=== PATIENT | female | born 1960 | race Caucasian/White ===

== ENCOUNTER 2019-10-31 01:11 | Day surgery (SDC) | payer OTHER, SELFPAY ==
[2019-10-30 07:32] VITALS: BMI 24.1
[2019-10-31] MEDS: LACTATED RINGERS 1,000 ML 150 ML IV CONT (10:47)
[2019-10-31 10:51] VITALS: BP 118/60; PULSE 66; RESP 20; TEMP 37.1; O2SAT 100
--- NOTE | 2019-10-31 10:53 | WPDANESEPPF ---
Anes - Initial Pre Proc Eval Procedure: Operation Date: 10/31/19 12:00 Proposed Procedures p Screening Colonoscopy - Jorge Luis Nichols MD Date/Time: 10/31/19 10:53 Surgeon: Jorge Luis Nichols MD Pre Op Diagnosis: Neoplasm Screening Patient Data Age: 59 Gender: F Height: 1.55 m Weight: 56.4 kg Last Vital Signs Temp 37.1 C 10/31/19 10:51 Pulse 66 10/31/19 10:51 Resp 20 10/31/19 10:51 BP 118/60 10/31/19 10:51 Pulse Ox 100 10/31/19 10:51 Allergies Allergy/AdvReac Type Severity Reaction Status Date / Time Penicillins Allergy Unknown RASH Verified 10/31/19 10:40 Home Medications Medication Instructions Recorded Confirmed Type cholecalciferol (vitamin D3) 5,000 unit PO QMWF 10/30/19 10/30/19 History [Vitamin D3] conj estrogens-bazedoxifene 1 tablet PO DAILY 10/30/19 10/30/19 History [Duavee] fenofibrate 160 mg PO DAILY 10/30/19 10/30/19 History levothyroxine 112 mcg PO DAILY 10/30/19 10/30/19 History lisinopril-hydrochlorothiazide 1 tablet PO BID 10/30/19 10/30/19 History metoprolol succinate 25 mg PO DAILY 10/30/19 10/30/19 History multivitamin 1 tablet PO DAILY 10/30/19 10/30/19 History omeprazole 20 mg PO DAILY 10/30/19 10/30/19 History Patient hx anesthesia problems: none Family hx anesthesia problems: none [facility] Past Medical History Medical History (Updated 10/31/19 @ 08:56 by Braden Ashton DO) GERD (gastroesophageal reflux disease) Hyperlipidemia Hypertension Hypothyroidism Renal stones Surgical History Surgical History (Updated 10/31/19 @ 08:56 by Braden Ashton DO) History of tonsillectomy History of tubal ligation Family History Family History (System 09/28/19 @ 08:41 by Florence Alejandre) Father Family history of lung cancer Mother Family history of lung cancer Sibling Family history of obesity Depression Family history of migraine headaches Family history of osteoarthritis Patient's sister is in good health Patient's brother is in good health Family history of irritable bowel syndrome Mother Hypertension Family history of osteoarthritis Cerebrovascular accident Family history of lung cancer, Onset Age: 72 Family history of emphysema Family history of irritable bowel syndrome Father Family history of lung cancer, Onset Age: 68 Family history of emphysema Patient's father is Grandparent Family history of coronary artery disease Other Diabetes mellitus Family history of arthritis Family history of cardiovascular disease Family history of malignant neoplasm Social History Social History (System 09/28/19 @ 08:41 by Florence Alejandre) Smoking status: Never smoker Second hand tobacco smoke exposure: No Alcohol intake: current Anes - Eval Final PreProcedure Day of Procedure 10/31/19 10:53 Patient weight: normal Heart: regular rate and rhythm Lungs: clear to auscultation and normal air movement Airway: Mallampati scale Neurological: alert and oriented Last oral intake: >/= 8 hours ASA classification: II Emergent: no Anesthetic plan: proceed Anesthesia type and monitoring: general GIVS and standard monitoring Informed Consent: The patient's anesthetic plan and its attendant risks and benefits were discussed with the patient/family/POA. Questions were solicited and answers provided to the satisfaction of the patient/family/POA.
[2019-10-31 12:50] VITALS: BP 97/48; PULSE 67; RESP 20; O2SAT 100
[2019-10-31 13:00] VITALS: BP 106/57; PULSE 70; RESP 20; O2SAT 99
[2019-10-31 13:10] VITALS: BP 103/59; PULSE 63; RESP 20; O2SAT 99
--- NOTE | 2019-12-22 07:17 | PM.HPGS ---
History of Present Illness History of Present Illness Consent: Risks, benefits, and alternatives have been discussed and questions answered. Patient agrees to proceed with procedure. Chief complaint: Neoplasm Screening Narrative: Asia Velasquez is a 59 year old female for screening colonoscopy. [facility] Past Medical History Medical History GERD (gastroesophageal reflux disease) Hyperlipidemia Hypertension Hypothyroidism Renal stones Surgical History Surgical History History of tonsillectomy History of tubal ligation Family History Family History Father Family history of lung cancer Mother Family history of lung cancer Sibling Family history of obesity Depression Family history of migraine headaches Family history of osteoarthritis Patient's sister is in good health Patient's brother is in good health Family history of irritable bowel syndrome Mother Hypertension Family history of osteoarthritis Cerebrovascular accident Family history of lung cancer, Onset Age: 72 Family history of emphysema Family history of irritable bowel syndrome Father Family history of lung cancer, Onset Age: 68 Family history of emphysema Patient's father is Grandparent Family history of coronary artery disease Other Diabetes mellitus Family history of arthritis Family history of cardiovascular disease Family history of malignant neoplasm Social History Social History (System 09/28/19 @ 08:41 by Florence Alejandre) Smoking status: Never smoker Second hand tobacco smoke exposure: No Alcohol intake: current Meds Home Medications and Allergies Home Medications Medication Instructions Recorded Confirmed Type Duavee 1 tablet PO DAILY 10/30/19 10/30/19 History cholecalciferol (vitamin D3) 5,000 unit PO QMWF 10/30/19 10/30/19 History [Vitamin D3] fenofibrate 160 mg PO DAILY 10/30/19 10/30/19 History levothyroxine 112 mcg PO DAILY 10/30/19 10/30/19 History lisinopril-hydrochlorothiazide 1 tablet PO BID 10/30/19 10/30/19 History metoprolol succinate 25 mg PO DAILY 10/30/19 10/30/19 History multivitamin 1 tablet PO DAILY 10/30/19 10/30/19 History omeprazole 20 mg PO DAILY 10/30/19 10/30/19 History Allergies Allergy/AdvReac Type Severity Reaction Status Date / Time Penicillins Allergy Unknown RASH Verified 10/31/19 10:40 Exam Resp: Auscultation: clear to auscultation bilaterally Cardio: Rate: regular rate Rhythm: regular rhythm GI: GI Palp: Yes Soft to palpation and No Tenderness to palpation present (GI) Assessment and Plan Assessment and plan (1) Colon cancer screening: Code(s): Z12.11 - Encounter for screening for malignant neoplasm of colon Status: Acute Assessment and Plan: Colonoscopy with possible biopsy or polypectomy or cautery or injection of substances.
== END 2019-10-31 13:25 | disposition home or self-care (01) ==
PROVIDERS: PCP Family Medicine; Visit Provider Internal Medicine Gastroenterology
PROC: 0DJD8ZZ Inspection of Lower Intestinal Tract, Via Natural or Artificial Opening Endoscopic (ICD-10-PCS; CPT 45378; principal; 2019-10-31 12:00)
DX: Z12.11 Encounter for screening for malignant neoplasm of colon (principal); K57.30 Diverticulosis of large intestine without perforation or abscess without bleeding; I10 Essential (primary) hypertension; E78.5 Hyperlipidemia, unspecified; E03.9 Hypothyroidism, unspecified; K21.9 Gastro-esophageal reflux disease without esophagitis
CPT/HCPCS: 45378; J2704; J7120

== ENCOUNTER 2020-01-15 10:25 | Outpatient (CLI) | payer OTHER, SELFPAY ==
[2020-01-15 11:29] LABS: Vitamin D 25 Hydroxy 95.7 ng/mL
== END 2020-01-15 10:26 | disposition home or self-care (01) ==
LOC: ANHLAB 10:26
PROVIDERS: PCP Family Medicine; Visit Provider Nurse Practitioner
DX: E55.9 Vitamin D deficiency, unspecified (principal)
CPT/HCPCS: 36415; 82306

== ENCOUNTER 2020-05-09 15:05 | Outpatient (CLI) | payer OTHER, SELFPAY ==
--- NOTE | ~2020-05-09 | XR_ITS ---
EXAMINATION: XR elbow RT min 3V DATE: 05/09/2020 15:35 INDICATION: Right elbow pain TECHNIQUE: Anteroposterior, two oblique and lateral views of the right elbow were obtained. COMPARISON: None. FINDINGS: Alignment is normal. No fracture or joint effusion. Joint spaces are normal. Soft tissues are unremar kable. IMPRESSION: 1. Negative right elbow radiographs. Reviewed, dictated and finalized at location A.
== END 2020-05-09 15:06 | disposition home or self-care (01) ==
PROVIDERS: PCP Family Medicine; Visit Provider Family Medicine
DX: M79.601 Pain in right arm (principal)
CPT/HCPCS: 73080

== ENCOUNTER 2020-05-23 09:04 | Outpatient (CLI) | payer OTHER, SELFPAY ==
--- NOTE | 2020-05-23 11:00 | NEURO_ITS ---
Patient Number: [id number] Impression: # Complains of right elbow discomfort with pain in right forearm. # Right ulnar neuropathy nonlocalizing around the elbow. # No Carpal Tunnel Syndrome. # Normal needle/EMG exam. Nerve Conduction Studies Anti Sensory Summary Table Stim Site NR Peak (ms) P-T Amp (?V) Site1 Site2 Delta-P (ms) Dist (cm) Trey (m/s) Right Median Anti Sensory (2-3nd Digit) Wrist 3.5 73.9 Wrist 2-3nd Digit 3.5 14.0 40 Wrist 3.3 84.4 Wrist 2-3nd Digit 3.5 14.0 40 Right Radial Anti Sensory (Base 1st Digit) Wrist 2.2 38.3 Wrist Base 1st Digit 2.2 0.0 Right Ulnar Anti Sensory (5th Digit) Wrist 2.7 78.2 Wrist 5th Digit 2.7 14.0 52 Motor Summary Table Stim Site NR Onset (ms) O-P Amp (mV) Site1 Site2 Delta-0 (ms) Dist (cm) Trey (m/s) Right Median Motor (Abd Poll Brev) Wrist 3.3 5.3 Elbow Wrist 4.3 26.0 60 Elbow 7.6 4.5 Right Ulnar Motor (Abd Dig Minimi) Wrist 3.3 8.8 A Elbow Wrist 5.1 27.0 53 A Elbow 8.4 8.6 B Elbow Wrist 3.4 17.0 50 B Elbow 6.7 7.5 F Wave Studies NR F-Lat (ms) L-R F-Lat (ms) Right Median (Mrkrs) (Abd Poll Brev) 27.66 Right Ulnar (Mrkrs) (Abd Dig Min) 26.48 EMG Side Muscle Nerve Root Ins Act Fibs Amp Dur Recrt Comment Right 1stDorInt Ulnar C8-T1 Nml Nml Nml Nml Nml Right Ext Indicis Radial (Post Int) C7-8 Nml Nml Nml Nml Nml Right Ext Digitorum Radial (Post Int) C7-8 Nml Nml Nml Nml Nml Right BrachioRad Radial C5-6 Nml Nml Nml Nml Nml Right PronatorTeres Median C6-7 Nml Nml Nml Nml Nml Right Abd Poll Brev Median C8-T1 Nml Nml Nml Nml Nml Right ABD Dig Min Ulnar C8-T1 Nml Nml Nml Nml Nml MTDD
== END 2020-05-23 09:05 | disposition home or self-care (01) ==
PROVIDERS: PCP Family Medicine; Visit Provider Nurse Practitioner Family
DX: G56.21 Lesion of ulnar nerve, right upper limb (principal)
CPT/HCPCS: 95886; 95909

== ENCOUNTER 2020-06-21 15:41 | Outpatient (CLI) | payer OTHER, SELFPAY ==
--- NOTE | ~2020-06-21 | MM_ITS ---
EXAMINATION: MM screening desean BI w praful HISTORY: Screening mammogram TECHNIQUE: Craniocaudal and mediolateral oblique 3-D tomosynthesis images were obtained and synthetic 2-D images were generated. CAD analysis was submitted and interpreted. COMPARISON: 05/16/2019, 05/12/2018, 04/27/2017, 04/04/2015 bilateral digital screening mammogram examinati ons BREAST PARENCHYMAL COMPOSITION: There are scattered areas of fibroglandular density. FINDINGS: There is stable fibroglandular asymmetry since 04/04/2015. There is no evidence of suspiciou s mass, calcification, or architectural distortion to suggest malignancy in either breast. There has been no suspicious interval change. IMPRESSION: 1. No mammographic evidence of malignancy. 2. Recommend routine screening mammography in one year. BI-RADS Category 2: Benign finding(s). Reviewed, dictated and finalized at location A.
== END 2020-06-21 15:42 | disposition home or self-care (01) ==
LOC: ANHIMG 15:42
PROVIDERS: PCP Family Medicine; Visit Provider Nurse Practitioner
DX: Z12.31 Encounter for screening mammogram for malignant neoplasm of breast (principal)
CPT/HCPCS: 77063; 77067

== ENCOUNTER 2020-07-16 12:30 | Outpatient (RCR) | payer OTHER, SELFPAY ==
--- NOTE | 2020-06-14 14:39 | OTOPEVAL ---
OCCUPATIONAL THERAPY EVALUATION REPORT 06/14/2020 Thank you for referring Asia Velasquez to [facility]. OT indicated 1-2x/week for 4 weeks for deficits described below. Please review, sign, date and return this plan of care MIKE. I agree with and certify that the following plan of care is medically necessary. Referring Physician Date Referring Provider: Tomas Reddy MD *OT Outpatient Evaluation Therapy Assessment Status Assessment Status Assessment Status Evaluation Outpatient Past Medical History Neurological History Hx Neurological Disorders No Significant History Cardiovascular History Hx Hypercholesterolemia Yes Hx Hypertension Yes Respiratory History Hx Respiratory Disorders No Significant History Gastrointestinal History Hx Gastroesophageal Reflux Disease Yes Hx Other Gastrointestinal Disorders Yes: diverticulosis Genitourinary History Hx Kidney Stones Yes Hx Other Genitourinary Disorders Yes: overactive bladder, interstitial cystitis, implanted interstem device Musculoskeletal History Hx Orthopedic Surgery Yes: right knee arthroscope Hematological History Hx Hematological Disorders No Significant History Endocrine History Hx Hypothyroidism Yes HEENT History Hx Tonsillectomy Yes Integumentary History Hx Skin Disorders No Significant History Reproductive History Hx Tubal Ligation Yes Psychosocial History Hx Psychiatric Disorders No Significant History Pain History History of Any Previous or Ongoing No Significant History Instance of Pain Anesthesia History Hx Anesthesia Reactions No Significant History Evaluation Information Problem Diagnosis (R) cubital tunnel Onset 6-8 months ago Subjective Information Patient has difficulties with Query Text:As Reported By Patient/ gripping and lifting due to Family pain, numbness, and tingling. She notes increased numbness and tingling when holding a blow dryer overhead and when sleeping curled up. She has been using a beach towel wrapped around her arm when sleeping to help inhibit bending. 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
--- NOTE | 2020-07-16 12:51 | OTOPEVAL ---
OCCUPATIONAL THERAPY DISCHARGE SUMMARY 07/16/2020 Thank you for referring Asia Velasquez to [facility].? Asia has progressed to no pain or paresthesias in the (R) UE and is independent with strengthening HEP. No further therapy indicated at this time. Please review, sign, date and return this D/C Note MIKE. I agree with and certify that the following plan of care is medically necessary. Referring Physician Date Referring Provider: Tomas Reddy MD Re-Evaluation Information Problem Diagnosis (R) cubital tunnel Additional Evaluation Detail Asia has participated in outpatient OT x5 treatment sessions which have consisted of body mechanics and ergonomic education, modalities for inflammation reduction, nerve gliding, and strengthening. Subjective Information Patient reports improvement Query Text:As Reported By Patient/ with functional use of her Family right UE stating she has no limitations at this time. She notes she has returning to lifting weights overhead without pain or restriction, she is able to lift a gallon of milk, and use a blow dryer without pain and tingling. She has stopped wrapping a towel around her arm and states that she is monitoring for signs of increased nerve inflammation and will intermittently return to using the towel as needed. Pain Assessment Timing of Pain Assessment Timing of Pain Assessment Re-assessment Pain Scale Pain Scale Used Numeric (1 - 10) Self Report Pain Assessment Right Elbow(s) Reported Pain Level 0 Pain Score Pain Score 0: Self Report Additional Pain Score Comments Patient reports no pain and has had no symptoms of ulnar nerve pain for more than a week. She did receive a cortisone injection for her lateral epicondylitis last Wednesday and notes it was sore after, but since has had no pain. Upper Extremity Range of Motion General Upper Extremity Range of Motion Reason Not Measured WNL/Right Upper Extremity Muscle Strength Testing Elbow/Forearm Bilateral Elbow Flexion Strength 5 Normal Elbow Extension Strength
== END 2020-07-16 13:24 | disposition home or self-care (01) ==
LOC: ANHOT 12:30
PROVIDERS: PCP Family Medicine; Visit Provider Orthopaedic Surgery
DX: G56.21 Lesion of ulnar nerve, right upper limb (principal)
CPT/HCPCS: 97018; 97035; 97110; 97140; 97166

== ENCOUNTER 2020-07-23 07:45 | Outpatient (CLI) | payer OTHER, SELFPAY ==
[2020-07-23 08:00] LABS: Basophils Absolute Auto 0.1 K/mm3 (0.0-0.1); Basophils Percent Auto 0.9 % (0.2-1.2); Eosinophils Absolute Auto 0.5 K/mm3 (0-0.3); Eosinophils Percent Auto 5.2 % (0-4.4); Hematocrit 41.2 % (37.0-47.0); Hemoglobin 13.9 g/dL (12.0-15.0); Immature Granulocyte Absolute 0.07 K/mm3 (0.00-0.031); Immature Granulocyte Percent A 0.7 % (0-0.5); Lymphocytes Absolute Auto 2.41 K/mm3 (0.9-3.2); Lymphocytes Percent Auto 24.3 % (18.3-44.2); Mean Corpuscular HGB Conc 33.7 g/dl (32-36); Mean Corpuscular Hemoglobin 32.6 pg (26-34); Mean Corpuscular Volume 96.5 fl (80-100); Mean Platelet Volume 9.5 fl (7.4-10.4); Monocytes Absolute Auto 0.9 K/mm3 (0.1-0.6); Monocytes Percent Auto 8.6 % (2.6-8.5); Neutrophils Percent Auto 60.3 % (45.5-73.1); Platelet Count Result 268 k/mm3 (150-375); Red Blood Count 4.27 M/mm3 (4.2-5.4); Red Cell Distribution Width 13.6 % (11.5-14.5); White Blood Count 9.9 K/mm3 (4.5-10.0)
[2020-07-23 08:30] LABS: LDL Cholesterol Direct 98 mg/dL
[2020-07-23 08:39] LABS: Alanine Aminotransferase 13 U/L (4-35); Albumin Level 3.8 g/dL (3.5-5.1); Alkaline Phosphatase 50 U/L (38-126); Anion Gap 4 mmol/L (8-16); Aspartate Amino Transferase 22 U/L (14-36); Bilirubin,Total 0.4 mg/dL (0.2-1.3); Blood Urea Nitrogen 27 mg/dL (7-17); Calcium 9.4 mg/dL (8.4-10.2); Carbon Dioxide 28 mmol/L (22-30); Chloride 105 mmol/L (98-107); Cholesterol 184 mg/dL (0-200); Estimated Glomerular Filt Rate > 60; Glucose 98 mg/dL (65-105); HDL Direct 62 mg/dL; Potassium 3.9 mmol/L (3.4-5.0); Sodium 137 mmol/L (137-145); Triglycerides 74 mg/dL (<150)
[2020-07-23 08:45] LABS: Iron 108 ug/dL (37-170)
[2020-07-23 09:00] LABS: Percent Iron Saturation 36 % (20-50)
[2020-07-23 09:30] LABS: Folic Acid > 20.0 ng/mL (2.76->20)
== END 2020-07-23 07:46 | disposition home or self-care (01) ==
PROVIDERS: PCP Family Medicine; Visit Provider Physician Assistant
DX: Z00.00 Encounter for general adult medical examination without abnormal findings (principal); I10 Essential (primary) hypertension; E03.9 Hypothyroidism, unspecified; E78.5 Hyperlipidemia, unspecified
CPT/HCPCS: 36415; 80053; 80061; 82607; 82746; 83540; 83550; 84443; 85025

== ENCOUNTER 2020-12-16 13:14 | Outpatient (CLI) | payer OTHER, SELFPAY ==
[2020-12-16 14:31] LABS: Vitamin D 25 Hydroxy 74.3 ng/mL
== END 2020-12-16 13:15 | disposition home or self-care (01) ==
PROVIDERS: PCP Family Medicine; Visit Provider Nurse Practitioner
DX: E55.9 Vitamin D deficiency, unspecified (principal)
CPT/HCPCS: 36415; 82306

== ENCOUNTER 2021-06-23 15:15 | Outpatient (CLI) | payer OTHER, SELFPAY ==
--- NOTE | ~2021-06-23 | MM_ITS ---
EXAMINATION: MM screening desean BI w praful HISTORY: Screening TECHNIQUE: Craniocaudal and mediolateral oblique 3-D tomosynthesis images were obtained and synthetic 2-D images were generated. CAD analysis was submitted and interpreted. COMPARISON: Comparison to multiple prior studies sequentially, with oldest reviewed study dated 04/04. BREAST PARENCHYMAL COMPOSITION: There are scattered areas of fibroglandular density. FINDINGS: There is no evidence of suspicious mass, calcification, or architectural distortion to sugg est malignancy in either breast. There has been no suspicious interval change. IMPRESSION: 1. No mammographic evidence of malignancy. 2. Recommend routine screening mammography in one year. BI-RADS Category 1: Negative Reviewed, dictated and finalized at location A.
== END 2021-06-23 15:16 | disposition home or self-care (01) ==
LOC: ANHIMG 15:18
PROVIDERS: PCP Family Medicine; Visit Provider Nurse Practitioner
DX: Z12.31 Encounter for screening mammogram for malignant neoplasm of breast (principal)
CPT/HCPCS: 77063; 77067

== ENCOUNTER 2021-10-29 08:26 | Outpatient (CLI) | payer OTHER, SELFPAY ==
--- NOTE | 2021-10-29 08:30 | ECG_ITS ---
Measurements Intervals [place] Rate: 56 P: 48 AL: 162 QRS: 45 QRSD: 87 T: 46 QT: 408 QTc: 397 Interpretive Statements SINUS BRADYCARDIA BASELINE ARTIFACT- I, II, III, AVR, AVL, AVF BORDERLINE ECG Electronically Signed On 10-29-2021 8:39:43 [employer] by Brady Wilson D.O.
[2021-10-29 09:05] LABS: Anion Gap 8 mmol/L (8-16); Blood Urea Nitrogen 22 mg/dL (7-17); Calcium 9.7 mg/dL (8.4-10.2); Carbon Dioxide 28 mmol/L (22-30); Chloride 100 mmol/L (98-107); Estimated Glomerular Filt Rate > 60; Glucose 89 mg/dL (65-110); Potassium 3.4 mmol/L (3.4-5.0); Sodium 136 mmol/L (137-145)
== END 2021-10-29 08:27 | disposition home or self-care (01) ==
LOC: ANHSURGERY 08:29
PROVIDERS: Anesthesiology; PCP Family Medicine; Visit Provider Orthopaedic Surgery
DX: Z01.818 Encounter for other preprocedural examination (principal); R00.1 Bradycardia, unspecified; I10 Essential (primary) hypertension
CPT/HCPCS: 36415; 80048; 93005

== ENCOUNTER 2021-10-30 07:06 | Outpatient (CLI) | payer OTHER, SELFPAY ==
[2021-10-30 07:46] LABS: Alanine Aminotransferase 17 U/L (4-35); Albumin Level 4.4 g/dL (3.5-5.1); Alkaline Phosphatase 58 U/L (38-126); Anion Gap 7 mmol/L (8-16); Aspartate Amino Transferase 26 U/L (14-36); Bilirubin,Total 0.5 mg/dL (0.2-1.3); Blood Urea Nitrogen 26 mg/dL (7-17); Calcium 9.7 mg/dL (8.4-10.2); Carbon Dioxide 28 mmol/L (22-30); Chloride 100 mmol/L (98-107); Cholesterol 183 mg/dL (0-200); Estimated Glomerular Filt Rate 51; Glucose 104 mg/dL (65-110); HDL Direct 57 mg/dL; Potassium 3.8 mmol/L (3.4-5.0); Sodium 135 mmol/L (137-145); Triglycerides 93 mg/dL (<150)
[2021-10-30 07:57] LABS: LDL Cholesterol Direct 97 mg/dL
[2021-10-30 10:12] LABS: Free T4 Free Thyroxine 1.81 ng/mL (0.78-2.19)
== END 2021-10-30 07:07 | disposition home or self-care (01) ==
LOC: ANHLAB 07:07
PROVIDERS: PCP Family Medicine; Visit Provider Physician Assistant
DX: E78.5 Hyperlipidemia, unspecified (principal); E03.9 Hypothyroidism, unspecified; Z00.00 Encounter for general adult medical examination without abnormal findings
CPT/HCPCS: 36415; 80053; 80061; 84439; 84443

== ENCOUNTER 2021-11-03 00:44 | Day surgery (SDC) | payer OTHER, SELFPAY ==
[2021-10-27 15:17] VITALS: BMI 22.6
--- NOTE | 2021-10-27 15:22 | PC.NURSE ---
Report to the Outpatient Waiting Room, entrance under the green pavilion located off [facility], at time __729 on date _11/03/21 . OR Time: . - You and your visitor will be asked a series of questions to screen for COVID 19 for your protection. - A mask is required within the hospital. - Only one visitor is allowed at this time. Patient visitors will be guided where to wait when not with patient. Preoperative COVID Testing Requirements: No COVID Test needed if: (proof is required; if not received patient will have Rapid Test prior to entry) - Patient has received COVID Vaccine at least 14 days prior to procedure date or - Patient has positive COVID test result within last 90 days of surgery date. COVID Test needed if above criteria is not met If not COVID vaccinated a COVID test must be conducted within 72 hours of surgery and patient is asked to isolate self from time of testing until procedure. You will go to the [facility] for your COVID testing. The [facility] site is located at the corner of [address] from [facility]. You will only be called if COVID results are positive and your surgeon may reschedule your elective surgery date. Patients may have clear liquids (water, carbonated beverages, clear teas, apple juice) until 3 hours prior to surgery with a maximum of 20 ounces. - No food from midnight until time of surgery - Infants may have breast milk until 4 hours before surgery, infant formula 6 hours prior to surgery. - Children will be allowed to drink immediately following surgery. If applicable, please bring a bottle or sippy cup to assist with drinking. Juice, water, soda, and popsicles are readily available. For infants on formula, please bring formula the day of surgery. Pacifiers are allowed. Take the following medications with a SIP of water the morning of surgery: ____LEVOTHYROXINE,METOPROLOL Medications to discontinue per physician ____ALL VITAMINS AND SUPPLEMENTS 3 DAYS PRE OP Date to take last dose_10/30/21 Please no make-up, nail macedonian, hairspray, perfume, deodorant, or body powder the day of surgery. No jewelry (including any body piercings) or valuables the day of surgery, leave them at home. Please take a shower or bath the night before, or the morning of, surgery with an antibacterial soap. Wear comfortable, loose fitting clothing. Children are encouraged to wear pajamas. - Jewelry must be removed prior to entering the operating room. Rings and piercings that are not removed may be cut off. - The hospital will not accept responsibility for valuables. - Please leave all valuables, including medications, at home the day of surgery. If you are going home after surgery, a licensed rolloff truck driver must drive you home. - NO public transportation without another adult. - We recommend that an adult stay with you for 24 hours following discharge. - We also recommend that you do not drive, make important decision, drink alcoholic beverages, or take any drugs that were not prescribed by your health care provider for at least 24 hours after your discharge time. For Pediatric surgeries, we recommend two adults accompany the child home (only one inside the building at this time). Follow any additional instructions given to you from your surgeon. Telephone instructions given to ___PATIENT and asked if any additional questions and then verbalized understanding. Patient advised to call surgeon office or pre surgery nurse liaison [phone] if any additional questions.
--- NOTE | 2021-10-29 15:35 | PM.IMHP ---
H&P: HPI History of Present Illness Date/Time: 10/29/21 15:35 Chief Complaint: Right elbow pain Narrative: 61-year-old woman with right elbow pain on the lateral aspect. 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 Better if she is not using the arm. She also has numbness and tingling of the small and ring fingers and weakness. She has radiating pain shooting from the medial side of the elbow. She has had several cortisone injections which helped temporarily. She has used a brace. She has been to physical therapy. Continues to have difficulty on a daily basis. Review of Systems Constitutional: Constitutional: Denies fever(s) Eyes: Eyes: Denies blurry vision ENT: Reports Normal hearing present Cardiovascular: Cardiovascular: Denies chest pain and Denies dyspnea Respiratory: Respiratory: Denies dyspnea and Denies wheezing Gastrointestinal: Gastrointestinal: Denies abdominal pain Genitourinary: Genitourinary: Denies urinary urgency Musculoskeletal: Musculoskeletal: Reports as per HPI and Denies numbness Integumentary/Breasts: Skin/Breast: Denies changing lesions and Denies sores Neurologic: Reports Normal hearing present, Denies behavioral changes, Denies confusion, Denies numbness and Denies convulsions Psychiatric: Psychiatric: Denies behavioral changes, Denies confusion and Denies hallucinations Endocrine: Endocrine: Denies heat intolerance Hematologic/Lymphatic: Hematologic/Lymphatic: Denies easy bleeding Allergic/Immunologic: Allergic/Immunologic: Denies wheezing [facility], [facility] Past Medical History Medical History BMI 23.0-23.9, adult Breast cancer screening Deviated septum GERD (gastroesophageal reflux disease) Hyperlipidemia Hyperlipidemia Hypertension Hypothyroidism Hypothyroidism (acquired) Lateral epicondylitis Primary hypertension Renal stones Right elbow pain Seasonal allergies 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 Surgical History Surgical History History of bladder surgery Bladder sling 07/14/10 History of cholecystectomy 07/28/07 History of colonoscopy 07/29/10, 10/31/19 History of esophagogastroduodenoscopy (EGD) 12/07/12 History of hysteroscopy 08/22/13 09/18/13 History of knee surgery Right knee arthroscopy 05/22/09 History of tonsillectomy History of tubal ligation Family History Family History Father Family history of lung cancer Mother Family history of lung cancer Sibling Family history of obesity Depression Family history of migraine headaches Family history of osteoarthritis Patient's sister is in good health Patient's brother is in good health Family history of irritable bowel syndrome Mother Hypertension Family history of osteoarthritis Cerebrovascular accident Family history of lung cancer, Onset Age: 72 Family history of emphysema Family history of irritable bowel syndrome Father Family history of lung cancer, Onset Age: 68 Family history of emphysema Patient's father is Grandparent Family history of coronary artery disease Other Diabetes mellitus Family history of arthritis Family history of cardiovascular disease Family history of malignant neoplasm Social History Social History Smoking status: Never smoker Second hand tobacco smoke exposure: No Alcohol intake: current Alcohol use details: consumes 1-2 beers yearly Substance use: never Substance use type: does not use Gender identity (if verbalized by the patient): Female Spiritual care concerns: No Meds Home Medications and Allergies Home Medications Medication Instructions Recorded Confirmed Type cholecalciferol (vitamin D3) 5,000 unit PO QMWF 10/30/19 10/27/21 History [Vitamin
--- NOTE | 2021-11-03 07:04 | WPDHPUPDATE1 ---
History and Physical Update Update Date/Time: 11/03/21 07:04 History and Physical has been reviewed, including an updated exam of the patient. There are NO changes in the patient's condition. Risks, benefits, and alternatives have been discussed and questions answered. Patient agrees to proceed with procedure.
[2021-11-03 08:02] VITALS: BP 111/66; PULSE 63; RESP 16; TEMP 36.7; O2SAT 100
[2021-11-03] MEDS: ACETAMINOPHEN 500 MG TABLET 1000 MG PO (08:38)
[2021-11-03] MEDS: LACTATED RINGERS 1,000 ML 30 ML IV CONT ×2 (08:38→11:15)
[2021-11-03] MEDS: KETOROLAC 15 MG/ML VIAL (*BKC) IV PUSH (08:50)
--- NOTE | 2021-11-03 08:57 | WPDANESEPPF ---
Anes - Initial Pre Proc Eval Procedure: Operation Date: 11/03/21 10:00 Proposed Procedures p Right Cubital Tunnel Release with Lateral Epicondyle Release - Ilia Perez MD Date/Time: 11/03/21 08:57 Surgeon: Ilia Perez MD Pre Op Diagnosis: rt cubital tunnel syndrome, rt lat epicondylitis Patient Data Age: 61 Gender: F Height: 1.55 m Weight: 53.9 kg Last Vital Signs Temp 36.7 C 11/03/21 08:02 Pulse 63 11/03/21 08:02 Resp 16 11/03/21 08:02 BP 111/66 11/03/21 08:02 Pulse Ox 100 11/03/21 08:02 Allergies Allergy/AdvReac Type Severity Reaction Status Date / Time Penicillins Allergy Unknown RASH Verified 11/03/21 08:44 Home Medications Medication Instructions Recorded Confirmed Type cholecalciferol (vitamin D3) 5,000 unit PO QMWF 10/30/19 11/03/21 History [Vitamin D3] multivitamin 1 tablet PO DAILY 10/30/19 11/03/21 History metoprolol succinate 25 mg 12.5 mg PO DAILY tablet 04/04/20 11/03/21 History tablet,extended release 24 hr lisinopril 20 1 tablet PO BID #180 tablet 10/02/20 11/03/21 Rx mg-hydrochlorothiazide 12.5 mg tablet fenofibrate 160 mg tablet 80 mg PO DAILY #45 tablet 10/29/20 11/03/21 Rx levothyroxine 112 mcg tablet See Rx Instructions .ROUTE 07/15/21 11/03/21 Rx .COMPLEX #90 tablet vitamins A,C,B-cgrm-gcgxkb 1 cap PO DAILY 10/27/21 11/03/21 History [PreserVision AREDS] lisinopril-hydrochlorothiazide tablet 11/03/21 History Patient hx anesthesia problems: none Family hx anesthesia problems: none Results Review: All pre-operative results and documents have been reviewed as part of the pre-operative evaluation. [facility] Past Medical History Medical History BMI 23.0-23.9, adult Breast cancer screening Deviated septum GERD (gastroesophageal reflux disease) Hyperlipidemia Hyperlipidemia Hypertension Hypothyroidism Hypothyroidism (acquired) Lateral epicondylitis Primary hypertension Renal stones Right elbow pain Seasonal allergies 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 Surgical History Surgical History History of bladder surgery Bladder sling 07/14/10 History of cholecystectomy 07/28/07 History of colonoscopy 07/29/10, 10/31/19 History of esophagogastroduodenoscopy (EGD) 12/07/12 History of hysteroscopy 08/22/13 09/18/13 History of knee surgery Right knee arthroscopy 05/22/09 History of tonsillectomy History of tubal ligation Family History Family History Father Family history of lung cancer Mother Family history of lung cancer Sibling Family history of obesity Depression Family history of migraine headaches Family history of osteoarthritis Patient's sister is in good health Patient's brother is in good health Family history of irritable bowel syndrome Mother Hypertension Family history of osteoarthritis Cerebrovascular accident Family history of lung cancer, Onset Age: 72 Family history of emphysema Family history of irritable bowel syndrome Father Family history of lung cancer, Onset Age: 68 Family history of emphysema Patient's father is Grandparent Family history of coronary artery disease Other Diabetes mellitus Family history of arthritis Family history of cardiovascular disease Family history of malignant neoplasm Social History Social History Smoking status: Never smoker Second hand tobacco smoke exposure: No Alcohol intake: current Alcohol use details: consumes 1-2 beers yearly Substance use: never Substance use type: does not use Living arrangements: with family Gender identity (if verbalized by the patient): Female Spiritual care concerns: No Anes - Eval Final PreProcedure Day o
[2021-11-03] MEDS: ceFAZolin 2 GM/D5W 50 ML 2 GM/50 ML BAG IVPB (09:34)
[2021-11-03 10:45] VITALS: BP 88/58; PULSE 70; RESP 12; TEMP 36.1; O2SAT 100
--- NOTE | 2021-11-03 10:47 | W.PM.PROC2 ---
Procedure Note - Detailed Date of Procedure 11/03/21 Pre-op Diagnosis rt cubital tunnel syndrome, rt lat epicondylitis Post-op Diagnosis same Procedure Performed Right elbow ulnar nerve release at the cubital tunnel, lateral epicondyle release. 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 EMG nerve conduction study consistent with cubital tunnel syndrome. Multiple cortisone injections in the cubital tunnel and lateral epicondyle gave temporary relief but no permanent relief. Presents now for operative treatment. Findings Ulnar nerve intact. Moderate compressive fascia. Degenerative changes lateral epicondyle. Description of Procedure What was done: Patient identified in the preoperative holding. Informed consent given. Operative extremity marked. Patient received intravenous antibiotics. Patient brought to the operating room where underwent general anesthetic by anesthesia team. Positioned supine on operating room table. Time-out performed confirming the patient, site of the surgery and the plan. Right upper extremity prepped and draped usual sterile surgical fashion using a ChloraPrep skin solution. Hand forearm and elbow exsanguinated and arm tourniquet inflated to 250 mmHg. We dressed the ulnar side of the elbow 1st. Anatomic landmarks were noted. Curvilinear incision then made with 15 blade knife over the cubital tunnel. Hemostasis controlled electrocautery. Careful dissection was then carried down to the fascia. Starting proximally the fascia over the line the ulnar nerve was released. The ulnar nerve was identified. Under direct visualization while protecting the nerve the fascia was then released from proximal to distal. Care was taken to protect ulnar nerve branches distal to the elbow. Any compressive or investing fascia was released. No other areas of compression were noted. The elbow was then taken through full range of motion in the ulnar nerve was noted to be stable posterior to the medial epicondyle. Wound was thoroughly irrigated and the subcutaneous tissue was repaired with 3-0 Monocryl interrupted stitch suture. The skin was proximally with 3-0 Monocryl running subcuticular stitch and Steri-Strips. Lateral aspect was then addressed. Oblique incision made over the lateral epicondyle 15 blade knife. Hemostasis controlled electrocautery. Care was taken to avoid neurovascular elements. The fascia overlying the lateral epicondyle was then released with a 15 blade knife. The humeral attachment of the extensor carpi musculature was then sharply released off the lateral epicondyle. There were degenerative changes of the epicondyle. Rongeur was used to remove these degenerative portions as well as decorticate the attachment site. Wound thoroughly irrigated with antibiotic solution. The fascia was then repaired with 2-0 Vicryl interrupted suture. Subcutaneous tissue repaired with 3-0 Monocryl interrupted suture. Skin approximated with 3-0 Monocryl running subcuticular stitch and Steri-Strips. Sterile dressing applied. The patient was then woken from anesthesia, extubated and taken to the recovery room in stable condition. All sponge, needle, instrument counts were correct at the end of the case. Estimated Blood Loss -5.0 Tourniquet Time 43 Drains No Packing No Pathology none sent Complications None Condition stable Disposition PACU
[2021-11-03 10:59] VITALS: BP 108/61; PULSE 67; RESP 10; O2SAT 100
[2021-11-03 11:14] VITALS: BP 116/74; PULSE 64; RESP 18; O2SAT 100
[2021-11-03 11:30] VITALS: BP 116/66; PULSE 56; RESP 12; O2SAT 100
[2021-11-03 11:32] VITALS: BP 106/85; PULSE 64; RESP 14
== END 2021-11-03 12:30 | disposition home or self-care (01) ==
PROVIDERS: PCP Family Medicine; Visit Provider Orthopaedic Surgery
PROC: (CPT 64718; principal; 2021-11-03 10:00)
DX: G56.21 Lesion of ulnar nerve, right upper limb (principal); M77.11 Lateral epicondylitis, right elbow; I10 Essential (primary) hypertension; E78.5 Hyperlipidemia, unspecified; E03.9 Hypothyroidism, unspecified; K21.9 Gastro-esophageal reflux disease without esophagitis
CPT/HCPCS: 64718; 24358; A4565; A9270; J0690; J1100; J1885; J2250; J2405; J2704; J3010; J7120

== ENCOUNTER 2022-01-06 09:29 | Outpatient (CLI) | payer OTHER, SELFPAY ==
[2022-01-06 10:40] LABS: Vitamin D 25 Hydroxy 86.7 ng/mL
== END 2022-01-06 09:30 | disposition home or self-care (01) ==
PROVIDERS: PCP Family Medicine; Visit Provider Nurse Practitioner
DX: E55.9 Vitamin D deficiency, unspecified (principal)
CPT/HCPCS: 36415; 82306

== ENCOUNTER 2022-01-29 07:06 | Outpatient (CLI) | payer OTHER, SELFPAY ==
[2022-01-29 07:34] LABS: Anion Gap 7 mmol/L (8-16); Blood Urea Nitrogen 29 mg/dL (7-17); Calcium 9.2 mg/dL (8.4-10.2); Carbon Dioxide 30 mmol/L (22-30); Chloride 104 mmol/L (98-107); Estimated Glomerular Filt Rate > 60; Glucose 100 mg/dL (65-110); Sodium 141 mmol/L (137-145)
[2022-01-29 08:02] LABS: Add Urine Microscopic? NO; Appearance Urine Clear (Clear); Bilirubin Urine Negative (Negative); Blood Urine Negative (Negative); Color Urine Yellow (Yellow); Glucose Urine UA Negative (Negative); Ketones Urine Negative (Negative); Leukocyte Esterase Ur Negative LEU/UL (NEGATIVE); Nitrate Urine Negative (Negative); Protein Urine Negative (Negative); Specific Grav Ur 1.015 (1.001-1.035); Urobilinogen Urine Negative mg/dL (<2.0)
== END 2022-01-29 07:07 | disposition home or self-care (01) ==
LOC: ANHLAB 07:07
PROVIDERS: PCP Family Medicine; Visit Provider Family Medicine
DX: N18.30 Chronic kidney disease, stage 3 unspecified (principal)
CPT/HCPCS: 36415; 80048; 81003

== ENCOUNTER 2022-04-23 07:18 | Outpatient (CLI) | payer OTHER, SELFPAY | END 2022-04-23 07:19 | disposition home or self-care (01) | LOC: ANHLAB 07:19 | PROVIDERS: PCP Family Medicine; Visit Provider Obstetrics & Gynecology Gynecology | DX: E55.9 Vitamin D deficiency, unspecified (principal) | CPT/HCPCS: 36415; 82306 ==

== ENCOUNTER 2022-06-05 07:04 | Outpatient (CLI) | payer OTHER, SELFPAY ==
--- NOTE | ~2022-06-05 | XR_ITS ---
EXAMINATION: XR knee RT 3V DATE: 06/05/2022 07:24 INDICATION: Pain in unspecified joint. TECHNIQUE: 3 views of right knee were obtained. COMPARISON: Right knee radiographs 04/19/2014 FINDINGS: Bone alignment is normal. No fracture. There is mild osteoarthritis of medial and patellofe moral compartments characterized by tiny marginal osteophytes. No joint space narrowing. There is cho ndrocalcinosis of the menisci. No knee joint effusion. IMPRESSION: 1. Mild right knee osteoarthritis. Reviewed, dictated and finalized at location A.
--- NOTE | ~2022-06-05 | XR_ITS ---
EXAMINATION: HAND-RIGO ARTHRITIS 3+VIEWS DATE: 06/05/2022 07:25 INDICATION: Unspecified joint pain at the bilateral hands TECHNIQUE: Posteroanterior, lateral, and oblique views of the left and of the right hands as well as a ballcatchers view of both hands were obtained. COMPARISON: None. FINDINGS: Normal alignment at the bilateral hands and wrists. No fracture. Osteoarthritis with moderate nonunif orm joint space narrowing and small marginal osteophytes at the left second metacarpophalangeal joint . Mild osteoarthritis at a few of the interphalangeal joints in both hands. The atypical predominance at the second metacarpophalangeal joints suggests that this location may be secondary to prior insul t such as trauma or infection. No erosions to suggest an inflammatory arthritis. Soft tissues are unr emarkable. IMPRESSION: 1. Polyarticular osteoarthritis, moderate at the left second metacarpophalangeal joint and mild at se veral bilateral interphalangeal joints. Reviewed, dictated and finalized at location B. IMPRESSION: 1. Polyarticular osteoarthritis, moderate at the left second metacarpophalangea l joint and mild at several bilateral interphalangeal joints.
--- NOTE | ~2022-06-05 | XR_ITS ---
EXAMINATION: XR knee LT 3V DATE: 06/05/2022 07:25 INDICATION: Pain in unspecified joint. TECHNIQUE: 3 views of left knee were obtained. COMPARISON: Left knee radiographs 04/19/2014 FINDINGS: Bone alignment is normal. No fracture. There is mild osteoarthritis of medial and patellofe moral compartments characterized by tiny osteophytes. No joint space narrowing. No knee joint effusio n. IMPRESSION: 1. Mild left knee osteoarthritis. Reviewed, dictated and finalized at location A.
== END 2022-06-05 07:05 | disposition home or self-care (01) ==
LOC: ANHIMG 07:06
PROVIDERS: PCP Family Medicine; Visit Provider Physician Assistant
DX: M25.50 Pain in unspecified joint (principal); M17.0 Bilateral primary osteoarthritis of knee; M19.042 Primary osteoarthritis, left hand; M19.041 Primary osteoarthritis, right hand
CPT/HCPCS: 73130; 73562

== ENCOUNTER 2022-06-26 06:40 | Outpatient (CLI) | payer OTHER, SELFPAY ==
[2022-06-26 07:10] LABS: Alanine Aminotransferase 17 U/L (6-35); Albumin Level 4.2 g/dL (3.5-5.1); Alkaline Phosphatase 92 U/L (38-126); Anion Gap 8 mmol/L (8-16); Aspartate Amino Transferase 26 U/L (14-36); Bilirubin,Total 0.4 mg/dL (0.2-1.3); Blood Urea Nitrogen 25 mg/dL (7-17); Calcium 8.8 mg/dL (8.4-10.2); Carbon Dioxide 27 mmol/L (22-30); Chloride 105 mmol/L (98-107); Cholesterol 116 mg/dL (0-200); Estimated Glomerular Filt Rate > 60; Glucose 100 mg/dL (65-110); HDL Direct 34 mg/dL; Potassium 4.1 mmol/L (3.4-5.0); Sodium 140 mmol/L (137-145); Triglycerides 80 mg/dL (<150)
[2022-06-26 07:21] LABS: LDL Cholesterol Direct 54 mg/dL
[2022-06-26 07:39] LABS: Free T4 Free Thyroxine 1.71 ng/mL (0.78-2.19)
== END 2022-06-26 06:41 | disposition home or self-care (01) ==
LOC: ANHLAB 06:42
PROVIDERS: PCP Family Medicine; Referring Provider Obstetrics & Gynecology Gynecology; Visit Provider Physician Assistant
DX: E03.9 Hypothyroidism, unspecified (principal); I10 Essential (primary) hypertension; Z13.1 Encounter for screening for diabetes mellitus; E78.5 Hyperlipidemia, unspecified; R53.83 Other fatigue; E55.9 Vitamin D deficiency, unspecified
CPT/HCPCS: 36415; 80053; 80061; 82306; 84439; 84443

== ENCOUNTER 2022-09-07 14:48 | Outpatient (CLI) | payer OTHER, SELFPAY ==
--- NOTE | ~2022-09-07 | DEXA_ITS ---
Bone Density Report Name: JUANY VERNON Age: 61 Sex: Female Ethnicity: White Date of : 1960 Indication: postmenopausal; screening for osteoporosis; Referring Provider: MIROSLAVA, LILA Study: Bone densitometry was performed. Exam Date: September 07, 2022 Accession number: [id number] Bone Density: Region BMD T-score Z-score Classification AP Spine(L1-L4) 0.844 -1.8 -0.4 Osteopenia Femoral Neck (Left) 0.647 -1.8 -0.5 Osteopenia Total Hip (Left) 0.837 -0.9 0.1 Normal Femoral Neck (Right) 0.634 -1.9 -0.7 Osteopenia Total Hip (Right) 0.793 -1.2 -0.3 Osteopenia Total Hip Mean 0.815 -1.1 -0.1 Osteopenia World Health Organization criteria for BMD impression classify patients as: Normal (T-score at or above -1.0), Osteopenia (T-score between -1.0 and -2.5), or Osteoporosis (T-score at or below -2.5). 10-year Fracture Risk(1): Major Osteoporotic Fracture 9.1% Hip Fracture 1.1% Reported Risk Factors: [place] (), Neck BMD=0.634, BMI=23.8 (1) FRAX(R) Version 3.08. Fracture probability calculated for an untreated patient. Fracture probability may be lower if the patient has received treatment. Previous Exams: Region Exam Age BMD T-score BMD Change BMD Change Date g/cm2 vs Baseline vs Previous Total Hip(Left) 09/07/2022 61 0.837 -0.9 -0.113 (-11.9% -0.056 (-6.2%) 05/16/2019 58 0.893 -0.4 -0.058 (-6.1%) -0.014 (-1.5%) 12/22/2016 56 0.906 -0.3 -0.044 (-4.6%) -0.044 (-4.6%) 08/23/2013 52 0.951 0.1 Total Hip(Right) 09/07/2022 61 0.793 -1.2 -0.125 (-13.6% -0.046 (-5.5%) 05/16/2019 58 0.839 -0.8 -0.078 (-8.5%) -0.004 (-0.5%) 12/22/2016 56 0.843 -0.8 -0.075 (-8.1%) -0.075 (-8.1%) 08/23/2013 52 0.918 -0.2 *Denotes significance at 95% confidence level, LSC for Total Hip = 0.027 g/cm2 # Denotes dissimilar scan types or analysis methods Clinical Information Provided by Patient: Patient maximum height was 61 Menopause Age: 52 Drinks caffeinated beverages Onset of menses at age 19 Number of children 1 Impression: The patient has low bone mass, based on the Right Femoral Neck T-score. The patient has an estimated ten-year risk of hip fracture of 1.1% and an estimated ten-year risk of major fracture of 9.1%, based on the WHO FRAX algorithm. The BMD for the Total Hip(Left) decreased, changing by -6.2% since the last DXA exam. The BMD for the Total Hip(Right) decreased, changing by -5.5% since the last DXA exam.
--- NOTE | ~2022-09-07 | MM_ITS ---
EXAMINATION: MM screening desean BI w praful HISTORY: Screening TECHNIQUE: Craniocaudal and mediolateral oblique 3-D tomosynthesis images were obtained and synthetic 2-D images were generated. CAD analysis was submitted and interpreted. COMPARISON: Comparison to multiple prior studies sequentially, with oldest reviewed study dated 04/09. BREAST PARENCHYMAL COMPOSITION: There are scattered areas of fibroglandular density. FINDINGS: There is no evidence of suspicious mass, calcification, or architectural distortion to sugg est malignancy in either breast. There has been no suspicious interval change. IMPRESSION: 1. No mammographic evidence of malignancy. 2. Recommend routine screening mammography in one year. BI-RADS Category 1: Negative Reviewed, dictated and finalized at location A.
== END 2022-09-07 14:49 | disposition home or self-care (01) ==
PROVIDERS: PCP Family Medicine; Visit Provider Nurse Practitioner
DX: Z12.31 Encounter for screening mammogram for malignant neoplasm of breast (principal); Z78.0 Asymptomatic menopausal state; M85.89 Other specified disorders of bone density and structure, multiple sites
CPT/HCPCS: 77063; 77067; 77080

== ENCOUNTER 2022-10-26 07:03 | Outpatient (CLI) | payer OTHER, SELFPAY ==
[2022-10-26 08:00] LABS: Vitamin D 25 Hydroxy 62.1 ng/mL
== END 2022-10-26 07:04 | disposition home or self-care (01) ==
LOC: ANHLAB 07:05
PROVIDERS: PCP Family Medicine; Visit Provider Obstetrics & Gynecology Gynecology
DX: E55.9 Vitamin D deficiency, unspecified (principal)
CPT/HCPCS: 36415; 82306

== ENCOUNTER 2022-12-09 06:46 | Outpatient (CLI) | payer OTHER, SELFPAY ==
[2022-12-09 07:14] LABS: Basophils Absolute Auto 0.1 K/mm3 (0.0-0.1); Basophils Percent Auto 0.9 % (0.2-1.2); Eosinophils Absolute Auto 0.3 K/mm3 (0-0.3); Eosinophils Percent Auto 3.5 % (0-4.4); Hematocrit 41.3 % (37.0-47.0); Hemoglobin 13.7 g/dL (12.0-15.0); Immature Granulocyte Absolute 0.03 K/mm3 (0.00-0.031); Immature Granulocyte Percent A 0.4 % (0-0.5); Lymphocytes Percent Auto 29.8 % (18.3-44.2); Mean Corpuscular HGB Conc 33.2 g/dl (32-36); Mean Corpuscular Hemoglobin 31.3 pg (26-34); Mean Corpuscular Volume 94.3 fl (80-100); Mean Platelet Volume 9.6 fl (7.4-10.4); Monocytes Absolute Auto 0.8 K/mm3 (0.1-0.6); Monocytes Percent Auto 10.2 % (2.6-8.5); Neutrophils Absolute Auto 4.3 K/mm3 (1.3-6.7); Neutrophils Percent Auto 55.2 % (45.5-73.1); Platelet Count Result 291 k/mm3 (150-375); Red Blood Count 4.38 M/mm3 (4.2-5.4); Red Cell Distribution Width 13.1 % (11.5-14.5); White Blood Count 7.7 K/mm3 (4.5-10.0)
[2022-12-09 07:21] LABS: Alanine Aminotransferase 20 U/L (6-35); Albumin Level 4.1 g/dL (3.5-5.1); Alkaline Phosphatase 73 U/L (38-126); Anion Gap 4 mmol/L (8-16); Aspartate Amino Transferase 26 U/L (14-36); Bilirubin,Total 0.3 mg/dL (0.2-1.3); Blood Urea Nitrogen 23 mg/dL (7-17); Calcium 8.5 mg/dL (8.4-10.2); Carbon Dioxide 28 mmol/L (22-30); Chloride 105 mmol/L (98-107); Cholesterol 164 mg/dL (0-200); Estimated Glomerular Filt Rate > 60; Glucose 95 mg/dL (65-110); HDL Direct 50 mg/dL; Potassium 3.7 mmol/L (3.4-5.0); Sodium 137 mmol/L (137-145); Triglycerides 102 mg/dL (<150)
[2022-12-09 07:31] LABS: LDL Cholesterol Direct 80 mg/dL
== END 2022-12-09 06:47 | disposition home or self-care (01) ==
LOC: ANHLAB 06:47
PROVIDERS: PCP Family Medicine; Visit Provider Family Medicine
DX: Z00.00 Encounter for general adult medical examination without abnormal findings (principal); R53.83 Other fatigue; I10 Essential (primary) hypertension; E78.2 Mixed hyperlipidemia; E03.9 Hypothyroidism, unspecified
CPT/HCPCS: 36415; 80053; 80061; 84443; 85025

== ENCOUNTER 2023-06-11 06:50 | Outpatient (CLI) | payer OTHER, SELFPAY ==
[2023-06-11 08:18] LABS: Alanine Aminotransferase 20 U/L (6-35); Albumin Level 4.2 g/dL (3.5-5.1); Alkaline Phosphatase 88 U/L (38-126); Anion Gap 9 mmol/L (8-16); Aspartate Amino Transferase 31 U/L (14-36); Bilirubin,Total 0.5 mg/dL (0.2-1.3); Blood Urea Nitrogen 25 mg/dL (7-17); Calcium 9.4 mg/dL (8.4-10.2); Carbon Dioxide 25 mmol/L (22-30); Chloride 107 mmol/L (98-107); Cholesterol 195 mg/dL (0-200); Estimated Glomerular Filt Rate > 60; Glucose 100 mg/dL (65-110); HDL Direct 49 mg/dL; Potassium 3.7 mmol/L (3.4-5.0); Sodium 141 mmol/L (137-145); Triglycerides 66 mg/dL (<150)
[2023-06-11 08:29] LABS: LDL Cholesterol Direct 116 mg/dL
== END 2023-06-11 06:51 | disposition home or self-care (01) ==
PROVIDERS: PCP Family Medicine; Visit Provider Family Medicine
DX: E03.9 Hypothyroidism, unspecified (principal); I10 Essential (primary) hypertension; E78.2 Mixed hyperlipidemia
CPT/HCPCS: 36415; 80053; 80061; 84443

== ENCOUNTER 2023-09-17 14:57 | Outpatient (CLI) | payer OTHER, SELFPAY ==
--- NOTE | ~2023-09-17 | MM_ITS ---
EXAMINATION: MM screening desean BI w praful HISTORY: Screening mammogram TECHNIQUE: Craniocaudal and mediolateral oblique 3-D tomosynthesis images were obtained and synthetic 2-D images were generated. CAD analysis was submitted and interpreted. COMPARISON: 09/07/2022, 06/23/2021, 06/21/2020 bilateral screening mammogram examinations BREAST PARENCHYMAL COMPOSITION: There are scattered areas of fibroglandular density. FINDINGS: There is no evidence of suspicious mass, calcification, or architectural distortion to sugg est malignancy in either breast. There has been no suspicious interval change. IMPRESSION: 1. No mammographic evidence of malignancy. 2. Recommend routine screening mammography in one year. BI-RADS Category 1: Negative Reviewed, dictated and finalized at location A.
== END 2023-09-17 14:58 | disposition home or self-care (01) ==
LOC: ANHIMG 14:58
PROVIDERS: PCP Family Medicine; Visit Provider Nurse Practitioner
DX: Z12.31 Encounter for screening mammogram for malignant neoplasm of breast (principal)
CPT/HCPCS: 77063; 77067

== ENCOUNTER 2023-11-04 07:24 | Outpatient (CLI) | payer OTHER, SELFPAY ==
[2023-11-04 09:55] LABS: Vitamin D 25 Hydroxy 54.8 ng/mL
== END 2023-11-04 07:25 | disposition home or self-care (01) ==
LOC: ANHLAB 07:26
PROVIDERS: PCP Family Medicine; Visit Provider Nurse Practitioner
DX: E55.9 Vitamin D deficiency, unspecified (principal)
CPT/HCPCS: 36415; 82306

== ENCOUNTER 2024-01-03 06:50 | Outpatient (CLI) | payer OTHER, SELFPAY ==
[2024-01-03 08:07] LABS: Alanine Aminotransferase 16 U/L (6-35); Albumin Level 3.7 g/dL (3.5-5.1); Alkaline Phosphatase 66 U/L (38-126); Anion Gap 5 mmol/L (8-16); Aspartate Amino Transferase 27 U/L (14-36); Bilirubin,Total 0.5 mg/dL (0.2-1.3); Blood Urea Nitrogen 21 mg/dL (7-17); Calcium 8.8 mg/dL (8.4-10.2); Carbon Dioxide 26 mmol/L (22-30); Chloride 110 mmol/L (98-107); Cholesterol 164 mg/dL (0-200); Estimated Glomerular Filt Rate > 60; Glucose 99 mg/dL (65-110); HDL Direct 53 mg/dL; Potassium 3.6 mmol/L (3.4-5.0); Sodium 141 mmol/L (137-145); Triglycerides 73 mg/dL (<150)
[2024-01-03 08:18] LABS: LDL Cholesterol Direct 92 mg/dL
[2024-01-03 09:59] LABS: Free T4 Free Thyroxine Reflex 1.75 ng/dL (0.78-2.19)
[2024-01-03 12:05] LABS: Total Triiodothyronine (T3) 1.18 NG/ML (0.97-1.69)
== END 2024-01-03 06:51 | disposition home or self-care (01) ==
LOC: ANHLAB 06:51
PROVIDERS: PCP Family Medicine; Visit Provider Family Medicine
DX: Z00.00 Encounter for general adult medical examination without abnormal findings (principal); E78.2 Mixed hyperlipidemia; E03.9 Hypothyroidism, unspecified
CPT/HCPCS: 36415; 80053; 80061; 84439; 84443; 84480

== ENCOUNTER 2024-07-07 06:46 | Outpatient (CLI) | payer OTHER, SELFPAY ==
[2024-07-07 07:09] LABS: Alanine Aminotransferase 22 U/L (6-35); Albumin Level 4.2 g/dL (3.5-5.1); Alkaline Phosphatase 81 U/L (38-126); Anion Gap 9 mmol/L (4-12); Aspartate Amino Transferase 27 U/L (14-36); Bilirubin,Total 0.6 mg/dL (0.2-1.3); Blood Urea Nitrogen 23 mg/dL (7-17); Calcium 8.9 mg/dL (8.4-10.2); Carbon Dioxide 26 mmol/L (22-30); Chloride 105 mmol/L (98-107); Cholesterol 187 mg/dL (0-200); Estimated Glomerular Filt Rate > 60; Glucose 100 mg/dL (65-110); HDL Direct 50 mg/dL; Potassium 4.1 mmol/L (3.4-5.0); Sodium 140 mmol/L (137-145); Triglycerides 77 mg/dL (<150)
[2024-07-07 07:20] LABS: LDL Cholesterol Direct 112 mg/dL
== END 2024-07-07 06:47 | disposition home or self-care (01) ==
LOC: ANHLAB 06:47
PROVIDERS: PCP Family Medicine; Visit Provider Family Medicine
DX: E78.2 Mixed hyperlipidemia (principal); N18.30 Chronic kidney disease, stage 3 unspecified
CPT/HCPCS: 36415; 80053; 80061

== ENCOUNTER 2024-09-20 14:56 | Outpatient (CLI) | payer OTHER, SELFPAY ==
--- NOTE | ~2024-09-20 | MM_ITS ---
EXAMINATION: MM screening [facility] BI w praful HISTORY: Screening mammogram TECHNIQUE: Craniocaudal and mediolateral oblique 3-D tomosynthesis images were obtained and synthetic 2-D images were generated. CAD analysis was submitted and interpreted. COMPARISON: 09/17/2023, 09/07/2022, 06/23/2021, 06/21/2020 BREAST PARENCHYMAL COMPOSITION:Not Dense. There are scattered areas of fibroglandular density. FINDINGS: No suspicious mass, calcification, or architectural distortion are identified in either graham ast to suggest malignancy. There has been no suspicious interval change. IMPRESSION: No mammographic evidence of malignancy. Recommend routine screening mammography in one year. BI-RADS Category 1: Negative Reviewed, dictated and finalized at location .
--- NOTE | ~2024-09-20 | DEXA_ITS ---
Bone Density Report Name: JUANY VERNON Age: 63 Sex: Female Ethnicity: White Date of : 1960 Indication: osteopenia; Referring Provider: MIROSLAVA, LILA Study: Bone densitometry was performed. Exam Date: September 20, 2024 Accession number: [id number] Bone Density: Region BMD T-score Z-score Classification AP Spine(L1-L4) 0.866 -1.6 -0.1 Osteopenia Femoral Neck (Left) 0.671 -1.6 -0.2 Osteopenia Total Hip (Left) 0.960 0.1 1.2 Normal Femoral Neck (Right) 0.667 -1.6 -0.3 Osteopenia Total Hip (Right) 0.939 0.0 1.0 Normal Total Hip Mean 0.950 0.1 1.1 Normal World Health Organization criteria for BMD impression classify patients as: Normal (T-score at or above -1.0), Osteopenia (T-score between -1.0 and -2.5), or Osteoporosis (T-score at or below -2.5). 10-year Fracture Risk(1): Major Osteoporotic Fracture 8.6% Hip Fracture 0.9% Reported Risk Factors: [place] (), Neck BMD=0.671, BMI=23.8 (1) FRAX(R) Version 3.08. Fracture probability calculated for an untreated patient. Fracture probability may be lower if the patient has received treatment. Previous Exams: Region Exam Age BMD T-score BMD Change BMD Change Date g/cm2 vs Baseline vs Previous AP Spine (L1-L4) 09/20/2024 63 0.866 -1.6 -0.146 (-14.4% 0.022 (2.7%) 09/07/2022 61 0.844 -1.8 -0.168 (-16.6% -0.081 (-8.7%) 05/16/2019 58 0.924 -1.1 -0.088 (-8.7%) 0.012 (1.3%) 12/22/2016 56 0.912 -1.2 -0.100 (-9.9%) -0.100 (-9.9%) 08/23/2013 52 1.012 -0.3 *Denotes significance at 95% confidence level, LSC for AP Spine = 0.022 g/cm2 # Denotes dissimilar scan types or analysis methods Clinical Information Provided by Patient: Has used the following medications: Vitamin D, Calcium Has the following medical conditions: hypothyroidism Patient maximum height was 61 Menopause Age: 52 Drinks caffeinated beverages Onset of menses at age 19 Number of children 1 Impression: The patient has low bone mass, based on the Total Spine T-score. The patient has an estimated ten-year risk of hip fracture of 0.9% and an estimated ten-year risk of major fracture of 8.6%, based on the WHO FRAX algorithm. No significant bone loss was observed. Discussion: BONE DENSITY IS LOW AT ONE OR MORE SKELETAL SITES. This patient's lowest T-score is low at one or more skeletal sites. It meets the World Health Organization's (WHO) criteria for ?low bone mass? (T-score between -1.0 and -2.5). The patient's 10-year risk of fracture as calculated by FRAX is less than the threshold where pharmacological therapy is recommended by the National Osteoporosis Foundation (NOF). However, all treatment decisions require clinical judgment and consideration of individual patient factors, including patient preferences, comorbidities, previous drug use, risk factors not captured in the FRAX model (e.g., frailty, falls, vitamin D deficiency, increased bone turnover, interval significant decline in bone density) and possible under or overestimation of fracture risk by FRAX. The patient should follow a healthful lifestyle (good nutrition with adequate calcium and vitamin D, and appropriate weight-bearing exercise). Follow-Up: Consider repeating this study in 2 to 3 years to reassess this patient's status, or sooner if there is some new clinical indication. Reported by: TATUM on 09/20/2024 3:24:00 PM. Reviewed, dictated and finalized at location A. LILI
== END 2024-09-20 14:57 | disposition home or self-care (01) ==
LOC: ANHIMG 14:57
PROVIDERS: PCP Family Medicine; Visit Provider Nurse Practitioner
DX: M85.89 Other specified disorders of bone density and structure, multiple sites (principal); Z12.31 Encounter for screening mammogram for malignant neoplasm of breast
CPT/HCPCS: 77063; 77067; 77080

== ENCOUNTER 2024-09-22 03:02 | Day surgery (SDC) | payer OTHER, SELFPAY ==
--- NOTE | 2024-09-14 10:34 | PC.NURSE ---
Report to the Outpatient Waiting Room, entrance under the green pavilion located off [facility], at time ___0915____ on date _[id number] . Planned Procedure Time: ___1115 Time changes happen often and if your time is changed the preop area will call you the afternoon before. - You and your visitor will be asked to self-screen and do not enter if you have any COVID symptoms. Please call surgeon if you need to reschedule. - A mask is optional within the hospital at this time. Patients may have clear liquids (water, carbonated beverages, clear teas, apple juice) until 3 hours prior to surgery with a maximum of 20 ounces. Stop at 0815 - No food from midnight until time of surgery and no smoking - Take only the following medications with a SIP of water on the morning of surgery: Synthroid DO NOT STOP ANY OF YOUR OTHER PRESCRIPTION MEDICATIONS PRIOR TO SURGERY EXCEPT THE FOLLOWING Medications to discontinue per physician __Hold day of: Aldentonate, Fenofibrate, Lisinopril/hctz, prilosec Hold mvt/supplements: (vit d3, mvt, KCL, preservision) x3 days before surgery. Last dose: [id number] Please no make-up, nail kiswahili, hairspray, perfume, deodorant, or body powder the day of surgery.? No jewelry (including any body piercings) or valuables the day of surgery, leave them at home.? Please take a shower or bath the night before, or the morning of, surgery with an antibacterial soap.? Wear comfortable, loose fitting clothing.? - Jewelry must be removed prior to entering the operating room.? Rings and piercings that are not removed may be cut off. - The hospital will not accept responsibility for valuables.? - Please leave all valuables, including medications, at home the day of surgery. If you are going home after surgery, a licensed bobtail driver must drive you home.? - NO public transportation without another adult if you receive anesthesia. - We recommend that an adult stay with you for 24 hours following discharge. - We also recommend that you do not drive, make important decision, drink alcoholic beverages, or take any drugs that were not prescribed by your health care provider for at least 24 hours after your discharge time. Follow any additional instructions given to you from your surgeon. Telephone instructions given to __patient ([place]) and asked if any additional questions and then verbalized understanding. Patient advised to call surgeon office or pre surgery nurse liaison [phone] if any additional questions.
[2024-09-14 10:41] VITALS: BMI 26.4
--- NOTE | 2024-09-16 16:06 | P.HP_ITS ---
H&P: HPI History of Present Illness Date/Time: 09/16/24 16:06 Chief Complaint: UUI Narrative: InterStim placed in 2018. In need of new battery and MRI compatability Review of Systems Review of Systems: All systems reviewed & are unremarkable except as noted in HPI and below PMFSH Past Medical History Medical History Acute medial meniscus tear of left knee BMI 23.0-23.9, adult Breast cancer screening Chronic renal insufficiency, stage III (moderate) Cubital tunnel syndrome Degenerative arthritis of left knee Degenerative arthritis of right knee Deviated septum Encounter for postoperative care GERD (gastroesophageal reflux disease) Hyperlipidemia Hyperlipidemia Hypertension Hypothyroidism Hypothyroidism (acquired) Lateral epicondylitis Osteopenia Primary hypertension Renal stones Right elbow pain Seasonal allergies 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 Surgical History Surgical History History of bladder surgery Bladder sling 07/14/10 History of cholecystectomy 07/28/07 History of colonoscopy 07/29/10, 10/31/19 History of esophagogastroduodenoscopy (EGD) 12/07/12 History of hysteroscopy 08/22/13 09/18/13 History of knee surgery Right knee arthroscopy 05/22/09 History of tonsillectomy History of tubal ligation Family History Family History Father Family history of lung cancer Mother Family history of lung cancer Sibling Family history of obesity Depression Family history of migraine headaches Family history of osteoarthritis Patient's sister is in good health Patient's brother is in good health Family history of irritable bowel syndrome Mother Hypertension Family history of osteoarthritis Cerebrovascular accident Family history of lung cancer, Onset Age: 72 Family history of emphysema Family history of irritable bowel syndrome Father Family history of lung cancer, Onset Age: 68 Family history of emphysema Patient's father is Grandparent Family history of coronary artery disease Other Diabetes mellitus Family history of arthritis Family history of cardiovascular disease Family history of malignant neoplasm Social History Social History Smoking status: Never smoker Second hand tobacco smoke exposure: No Alcohol intake: current Drinks per week: 0 Alcohol use details: (1-2x/month) Substance use: never Substance use type: does not use Lack of Transportation: No Lack of Food: Never True Current Housing: I Have Housing Concerned About Future Housing: No Difficulty Paying Gas/Electric Bills: No Difficulty Paying for Meds: No Currently Unemployed: No Education: High School Diploma/GED Difficulty w/ Childcare or Family Care: No Living arrangements: with family Gender identity (if verbalized by the patient): Female Spiritual care concerns: No Agree to blood products: Yes Meds Home Medications and Allergies Home Medications Medication Instructions Recorded Confirmed Type multivitamin 1 tablet PO DAILY 10/30/19 09/14/24 History vitamins A,C,A-vupe-orgpbg 4,296 1 cap PO BID 10/27/21 09/14/24 History mcg-226 mg-90 mg capsule (PreserVision AREDS) alendronate 70 mg tablet 70 mg PO WEEKLY 05/31/23 09/14/24 History cholecalciferol (vitamin D3) 1,250 1,250 mcg PO MONTHLY 05/31/23 09/14/24 History mcg (50,000 unit) tablet (Dialyvite Vitamin D3 Max) omeprazole magnesium 20 mg 20 mg PO DAILY 05/31/23 09/14/24 History capsule,delayed release (Acid Pcb Design Engineer (omeprazole)) potassium chloride 10 mEq 10 meq PO .TWICE WEEKLY #30 caps 04/19/24 09/14/24 Rx capsule,extended release fenofibrate 160 mg tablet 80 mg PO DAILY #45 tabs 05/29/24 09/14/24 Rx levothyroxine 112 mcg tablet 112 mcg PO DAILY 09/14/24 09/14/24 History (Euthyrox) lisinopril 20 1 tablet PO BID 09/14/24 09/14/24 History mg-hydrochlorothiazide 12.5 mg tablet Allergies Allergy/AdvReac Type Severity Reaction Status Date / Time Penicillins Allergy Unknown RASH Verified 09/14/24 10:44 Exam Narrative: NAD normal breathing A+O x3 Assessment and Plan Assessment and plan (1) Urge incontinence: Code(s): N39.41 - Urge incontinence Status: Acute Assessment and Plan: remove and replace InterStim
--- NOTE | ~2024-09-22 | XR_ITS ---
EXAMINATION: XR fluoroscopy no charge DATE: 09/22/2024 13:11 INDICATION: Neurostim implant. TECHNIQUE: 2 intraoperative fluoroscopic views of the pelvis were obtained. I was not present. Fluoro scopy exposure time was 46 seconds. COMPARISON: None. FINDINGS: There is no side marker. There is an electrode in an S3 neural foramen. IMPRESSION: 1. Electrode in an S3 neural foramen. Reviewed, dictated and finalized at location B.
--- NOTE | 2024-09-22 04:48 | WPDHPUPDATE1 ---
History and Physical Update Update Date/Time: 09/22/24 04:48 History and Physical has been reviewed, including an updated exam of the patient. There are NO changes in the patient's condition. Risks, benefits, and alternatives have been discussed and questions answered. Patient agrees to proceed with procedure.
[2024-09-22 10:00] VITALS: BP 137/70; PULSE 68; RESP 14; TEMP 37.4; O2SAT 99
[2024-09-22] MEDS: LACTATED RINGERS 1,000 ML 30 ML IV CONT (10:00)
[2024-09-22 10:14] LABS: Anion Gap 9 mmol/L (4-12); Blood Urea Nitrogen 22 mg/dL (7-17); Calcium 9.2 mg/dL (8.4-10.2); Carbon Dioxide 26 mmol/L (22-30); Chloride 107 mmol/L (98-107); Estimated CRCL calculation 49 ml/min; Estimated Glomerular Filt Rate > 60; Glucose 99 mg/dL (65-110); Potassium 3.9 mmol/L (3.4-5.0); Sodium 142 mmol/L (137-145)
--- NOTE | 2024-09-22 10:15 | P.PNAN_ITS ---
Anes - Initial Pre Proc Eval Procedure: Operation Date: 09/22/24 11:15 Proposed Procedures p Removal and Replacement Stage Two Neurostimulator Implant - Stanley Hammer MD Date/Time: 09/22/24 10:15 Surgeon: Stanley Hammer MD Pre Op Diagnosis: bouchra cespedes Patient Data Age: 63 Gender: F Height: 1.55 m Weight: 63.5 kg Allergies Allergy/AdvReac Type Severity Reaction Status Date / Time Penicillins Allergy Unknown RASH Verified 09/14/24 10:44 Home Medications Medication Instructions Recorded Confirmed Type multivitamin 1 tablet PO DAILY 10/30/19 09/14/24 History vitamins A,C,N-gbub-[id number] 4,296 1 cap PO BID 10/27/21 09/14/24 History mcg-226 mg-90 mg capsule (PreserVision AREDS) alendronate 70 mg tablet 70 mg PO WEEKLY 05/31/23 09/14/24 History cholecalciferol (vitamin D3) 1,250 1,250 mcg PO MONTHLY 05/31/23 09/14/24 History mcg (50,000 unit) tablet (Dialyvite Vitamin D3 Max) omeprazole magnesium 20 mg 20 mg PO DAILY 05/31/23 09/14/24 History capsule,delayed release (Acid Journalism Instructor (omeprazole)) potassium chloride 10 mEq 10 meq PO .TWICE WEEKLY #30 caps 04/19/24 09/14/24 Rx capsule,extended release fenofibrate 160 mg tablet 80 mg PO DAILY #45 tabs 05/29/24 09/14/24 Rx levothyroxine 112 mcg tablet 112 mcg PO DAILY 09/14/24 09/14/24 History (Euthyrox) lisinopril 20 1 tablet PO BID 09/14/24 09/14/24 History mg-hydrochlorothiazide 12.5 mg tablet Laboratory Tests 09/22/24 09:56 Sodium 142 mmol/L (137-145) Potassium 3.9 mmol/L (3.4-5.0) Chloride 107 mmol/L (98-107) Carbon Dioxide 26 mmol/L (22-30) Anion Gap 9 mmol/L (4-12) BUN 22 H mg/dL (7-17) Creatinine 0.90 mg/dL (0.7-1.0) Estim Creat Clear Calc 49 ml/min Estimated GFR > 60 (59 - ) Glucose 99 mg/dL (65-110) Calcium 9.2 mg/dL (8.4-10.2) Patient hx anesthesia problems: none Family hx anesthesia problems: none Results Review: All pre-operative results and documents have been reviewed as part of the pre- operative evaluation. FOR[facility], LAT[facility] Past Medical History Medical History Acute medial meniscus tear of left knee BMI 23.0-23.9, adult Breast cancer screening Chronic renal insufficiency, stage III (moderate) Cubital tunnel syndrome Degenerative arthritis of left knee Degenerative arthritis of right knee Deviated septum Encounter for postoperative care GERD (gastroesophageal reflux disease) Hyperlipidemia Hyperlipidemia Hypertension Hypothyroidism Hypothyroidism (acquired) Lateral epicondylitis Osteopenia Primary hypertension Renal stones Right elbow pain Seasonal allergies 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 Surgical History Surgical History History of bladder surgery Bladder sling 07/14/10 History of cholecystectomy 07/28/07 History of colonoscopy 07/29/10, 10/31/19 History of esophagogastroduodenoscopy (EGD) 12/07/12 History of hysteroscopy 08/22/13 09/18/13 History of knee surgery Right knee arthroscopy 05/22/09 History of tonsillectomy History of tubal ligation Family History Family History Father Family history of lung cancer Mother Family history of lung cancer Sibling Family history of obesity Depression Family history of migraine headaches Family history of osteoarthritis Patient's sister is in good health Patient's brother is in good health Family history of irritable bowel syndrome Mother Hypertension Family history of osteoarthritis Cerebrovascular accident Family history of lung cancer, Onset Age: 72 Family history of emphysema Family history of irritable bowel syndrome Father Family history of lung cancer, Onset Age: 68 Family history of emphysema Patient's father is Grandparent Family history of coronary artery disease Other Diabetes mellitus Family history of arthritis Family history of cardiovascular disease Family history of malignant neoplasm Social History Social History Smoking status: Never smoker Second hand tobacco smoke exposure: No Alcohol intake: current Drinks per week: 0 Alcohol use details: (1-2x/month) Substance use: never Substance use type: does not use Lack of Transportation: No Lack of Food: Never True Current Housing: I Have Housing Concerned About Future Housing: No Difficulty Paying Gas/Electric Bills: No Difficulty Paying for Meds: No Currently Unemployed: No Education: High School Diploma/GED Difficulty w/ Childcare or Family Care: No Living arrangements: with family Gender identity (if verbalized by the patient): Female Spiritual care concerns: No Agree to blood products: Yes Anes - Eval Final PreProcedure Day of Procedure 09/22/24 10:15 Patient weight: normal Heart: regular rate and rhythm Lungs: clear to auscultation Airway: Mallampati scale class II Neurological: alert and oriented Last oral intake: >/= 8 hours ASA classification: II Emergent: no Anesthetic plan: proceed Anesthesia type and monitoring: general GIVS and standard monitoring Results Review: All pre-operative results and documents have been reviewed as part of the pre- operative evaluation. Informed Consent: The patient's anesthetic plan and its attendant risks and benefits were discussed with the patient/family/POA. Questions were solicited and answers provided to the satisfaction of the patient/family/POA.
[2024-09-22] MEDS: ceFAZolin 2 GM/D5W 50 ML 2 GM/50 ML BAG IVPB (10:54)
[2024-09-22] MEDS: BUPIVACAINE/EPINEPHRINE 0.5% 50 ML VIAL 30 ML INFILTRATE (11:12)
[2024-09-22] MEDS: KETOROLAC 15 MG/ML VIAL (*BKC) IV PUSH (11:30)
[2024-09-22 11:42] VITALS: BP 107/55; PULSE 88; RESP 12; O2SAT 98
--- NOTE | 2024-09-22 11:47 | W.PM.PROC2 ---
Procedure Note - Detailed Date of Procedure 09/22/24 Pre-op Diagnosis bouchra cespedes Post-op Diagnosis Same Procedure Performed Removal of right-sided sacral lead Removal of left-sided sacral lead Placement of new left-sided sacral lead Placement of implantable pulse generator Complex neurostimulator programming and impedance check Surgeon Stanley Hammer MD Anesthesia MAC and Local Indications This is a woman with InterStim device in place. She is here today for a full revision. She needs to be MRI compatible and her device is in the service. She understands risks of bleeding, infection, incomplete device removal, lack of efficacy. She agrees to proceed Findings Uncomplicated InterStim revision Description of Procedure She was correctly identified. Informed consent obtained. She brought the operating room. She was given monitored anesthesia care. She was placed in a prone position. Low back and buttock were prepped draped sterile fashion. Time-out performed. I anesthetized the skin over the battery. I incised the skin. I located the battery and explanted it. I then located the previously placed sacral leads under fluoroscopy. She had bilateral leads. I marked both leads. I anesthetized the skin over the right-sided sacral lead. I incised the skin. I located the sacral lead and removed in its entirety. I then anesthetized the skin over the left sacral lead. I located the lead and removed that lead in its entirety as well. I Identified my sacral landmarks in the AP and lateral orientation. The skin is already anesthetized. I entered the S3 foramen on the patient's sacrum. I did this in a new site not use any incision where we performed the ipsilateral lead removal. I monitored the needle under fluoroscopy. I stimulated the needle and got appropriate responses at a low threshold. I made a skin haim. I placed the stylet and the lead inducer sheath. I then placed and deployed my lead percutaneously under fluoroscopy. I again stimulated the lead and got appropriate responses at a low threshold. I tunneled the lead towards the previous battery site. I made appropriate connections between the new lead and the battery. The battery was programmed. It was placed in the pocket. Impedances were checked and found to be normal. I irrigated out the wounds copiously. I assured hemostasis. I closed subcutaneous tissue in 2 layers with 2-0 Vicryl. I closed the skin with 4-0 Vicryl. Glue was applied. She was awakened transferred PACU in stable condition Implants InterStim device Estimated Blood Loss 5 Drains No Packing No Pathology None sent Complications No immediate complications Condition Stable Disposition PACU
[2024-09-22 12:00] VITALS: BP 113/71; PULSE 62; RESP 14
[2024-09-22 12:30] VITALS: BP 110/55; PULSE 70; RESP 16
== END 2024-09-22 12:38 | disposition home or self-care (01) ==
PROVIDERS: Anesthesiology; PCP Family Medicine; Visit Provider Urology
PROC: (CPT 64561; principal; 2024-09-22 11:15)
DX: Z45.42 Encounter for adjustment and management of neurostimulator (principal); N39.41 Urge incontinence; I12.9 Hypertensive chronic kidney disease with stage 1 through stage 4 chronic kidney disease, or unspecified chronic kidney disease; N18.30 Chronic kidney disease, stage 3 unspecified; E78.5 Hyperlipidemia, unspecified; E03.9 Hypothyroidism, unspecified; K21.9 Gastro-esophageal reflux disease without esophagitis; M17.0 Bilateral primary osteoarthritis of knee; M85.88 Other specified disorders of bone density and structure, other site; Z79.83 Long term (current) use of bisphosphonates; Z98.890 Other specified postprocedural states; Z90.49 Acquired absence of other specified parts of digestive tract; Z98.51 Tubal ligation status; Z87.442 Personal history of urinary calculi; Z87.448 Personal history of other diseases of urinary system; Z80.1 Family history of malignant neoplasm of trachea, bronchus and lung; Z82.49 Family history of ischemic heart disease and other diseases of the circulatory system
CPT/HCPCS: 64561; 64590; 36415; 80048; 99199; C1767; C1778; C1787; J0690; J1885; J2003; J2004; J2250; J2270; J2405; J2704; J7120

== ENCOUNTER 2024-11-24 07:06 | Outpatient (CLI) | payer OTHER, SELFPAY ==
[2024-11-24 09:47] LABS: Vitamin D 25 Hydroxy 52.3 ng/mL
== END 2024-11-24 07:07 | disposition home or self-care (01) ==
LOC: ANHLAB 07:08
PROVIDERS: PCP Family Medicine; Visit Provider Nurse Practitioner Women's Health
DX: E55.9 Vitamin D deficiency, unspecified (principal)
CPT/HCPCS: 36415; 82306

== ENCOUNTER 2024-12-13 09:23 | Outpatient (CLI) | payer OTHER, SELFPAY ==
--- NOTE | 2024-12-13 09:30 | ECG_ITS ---
Test Date: 2024-12-13 09:44:03 Measurements Intervals [place] Rate: 75 P: 49 OK: 161 QRS: 14 QRSD: 77 T: 31 QT: 362 QTc: 407 Interpretive Statements SINUS RHYTHM WARNING: DATA QUALITY MAY AFFECT INTERPRETATION No previous ECG available for comparison Electronically Signed On 12-14-2024 13:53:49 MOTOR PATROL OPERATOR by Radha Diaz
[2024-12-13 09:59] LABS: Anion Gap 11 mmol/L (4-12); Blood Urea Nitrogen 38 mg/dL (7-17); Calcium 9.7 mg/dL (8.4-10.2); Carbon Dioxide 23 mmol/L (22-30); Chloride 105 mmol/L (98-107); Estimated Glomerular Filt Rate > 60; Glucose 94 mg/dL (65-110); Potassium 4.1 mmol/L (3.4-5.0); Sodium 139 mmol/L (137-145)
--- OUTSIDE RECORDS SUMMARY | 2024-12-14 22:26 | XMS_ITS | Clinical Summary ---
Author Organization [facility] Address [address] [place] [address] Care Team Providers Care Demolition Specialist Name Role Phone Unavailable Primary Care Provider Unavailabl e Source Comments [facility],non-owned Affiliates and Associated Physician Practices is amultiple site organization consisting of ambulatory clinics and hospital sitesin [place], [place], [place] and [place]. This disclosure is being madepursuant to the Care Everywhere program and may not contain all information available regarding this patient. Last updated 18.[facility] Social History Tobacco Use Types Packs/Day Years Used Date Smoking Tobacco: Never Assessed Sex and Gender Information Value Date Recorded Sex Assigned at Not on file Gender Identity Not on file Sexual Orientation Not on file Plan of Treatment Health Maintenance Due Date Last Done Comments COLOGUARD (AGES 45-75) - COL ON CA SCREENING 1960 COLON MONITORING 1960 COLONOSCOPY - COLON CA SCREENING 1962 CT COLONOGRAPHY - COLON CA SCREENING 1960 Colorectal Cancer Screening 1960 FIT - COLON CA SCREENING 1960 FLEX SIG - COLON CA SCREENING 1960 LIPID TESTING 1960 MAMMOGRAM 1960 PAP SMEAR 1962 HIV SCREENING 1977 HEPATITIS C SCREENING 10/15/1980 DTAP/TDAP/TD VACCINES (1 - Tdap) 1981 PNEUMOCOCCAL VACCINE 50+ (1 of 1 - PCV) 2012 ZOSTER VACCINE (1 of 2) 2012 COVID-19 VACCINE ( - 2023-2 5 season) 2024 INFLUENZA VACCINE (#1) 2024 DEPRESSION SCREENING 11/22/2024 Respiratory Syncytial Virus (RSV) Vaccine Pt: or over 60 yrs (1 - 1-dose 75+ series) 2037 HEPATITIS B VACCINE Aged Out No longe r eligible based on patient's age to complete this topic HIB VACCINE Aged Out No longer eligi ble based on patient's age to complete this topic HPV VACCINE Aged Out No longer eligi ble based on patient's age to complete this topic MENINGOCOCCAL (Group B) VACCINE Aged Out No longer eligible based on patient's age to complete this topic MENINGOCOCCAL VACCINE Aged Out No jason sivakumar eligible based on patient's age to complete this topic PNEUMOCOCCAL VACCINE Aged Out No long er eligible based on patient's age to complete this topic
--- OUTSIDE RECORDS SUMMARY | 2024-12-14 22:26 | XMS_ITS | Referral Summary ---
Author Organization [facility] Address [address] [place] [address] Care Team Providers Care Booth Usher Name Role Phone Eliane Hou MD Primary Care Provider Encounters Date Type Department Care Team Description 11/03/2024 12:16 PM BUSINESS APPLICATIONS MANAGER - 11/03/2024 11:59 PM [facility] Hospital Encounter [facility] ([facility]) [address] [place] [id number] Rupesh العلي MD Encounter for imaging to screen for metal prior to magnetic resonance imaging (MRI) Discharge Disposition: Discharge to home or self care 11/03/2024 12:13 PM BUSINESS APPLICATIONS MANAGER - 11/03/2024 11:59 PM [facility] Hospital Encounter [facility] ([facility]) [address] [place] [id number] Unilateral primary osteoarthritis, left knee Discharge Disposition: Discharge to home or self care 10/18/2024 Orders Only [facility] Health Information Management [address] [place] [address] Scanning, Provider from Last 3 Months Allergies Active Allergy Reactions Criticality Noted Date Comments Penicillins Unknown 04/15/2016 Medications conj estrogens-bazedo xifene (DUAVEE) 0.45-20 mg tablet Take 1 tab PM Active pentosan polysulfate (ELMIRON) 100 mg capsule TAKE 1 CAPSULE 3 TIMES DAILY. Active gemfibrozil (LOPID) 600 mg tablet 2 times daily. Active levothyroxine (SYNTHROID, LEVOTHROID) 100 mcg tablet daily. Active metoprolol XL (TOPROL-XL) 100 mg 24 hr tablet daily. Acti ve omeprazole (PriLOSEC) 20 mg capsule daily. Active Social History Tobacco Use Types Packs/Day Years Used Date Smoking Tobacco: Never Smokeless Tobacco: Never Comments Unknown Sex and Gender Information Value Date Recorded Sex Assigned at Not on file Legal Sex Female 12:12 AM BUSINESS APPLICATIONS MANAGER Gender Identity Not on file Sexual Orientation Not on file Last Filed Vital Signs Vital Sign Reading Time Taken Comments Blood Pressure 146/78 07/14/2019 10:49 AM CDT Pulse 57 07/14/2019 10:49 AM CDT Temperature 36.7 ??C (98 ??F) 07/14/2019 10:49 AM CDT Respiratory Rate 18 07/14/2019 10:49 AM CDT Oxygen Saturation 97% 07/14/2019 10:49 AM CDT room air Inhaled Oxygen Concentration - - Weight 59.4 kg (131 lb) 07/14/2019 10:49 AM CDT Height 154.9 cm (5' 1 ) 07/14/2019 10:49 AM CDT Body Mass Index 24.75 07/14/2019 10:49 AM CDT Plan of Treatment Not on file Medical Devices Implanted Type Area Banking Consultant Device Identifier Shelf Expiration Date Model / Serial / Lot Neurostimulator Bladder Implanted:Unknown , Notinfile (Quantity not on file) Neurostimulator Pelvis Medtronic Neuro [id number] / / Neurostimulator Bladder Lead Implanted:Qty: 1 by Unknown, Notinfile Neurostimulator Pelvis Medtronic Neuro [id number] / / Procedures Procedure Name Priority Date/Time Associated Diagnosis Comments MRI KNEE RIGHT WO CONTRAST Schedule Routine, Read Routine (OP Routine) 11/03/2024 3:23 PM BUSINESS APPLICATIONS MANAGER Unilateral primary osteoarthritis, right knee MRI KNEE LEFT WO CONTRAST Schedule Routine, Read Routine (OP Routine) 11/03/2024 3:23 PM BUSINESS APPLICATIONS MANAGER Unilateral primary osteoarthritis, left knee XR PELVIS 1 OR 2 VIEWS Schedule Routine, Read Routine (OP Routine) 11/03/2024 12:24 PM BUSINESS APPLICATIONS MANAGER Encounter for imaging to screen for metal prior to magnetic resonance imaging (MRI) SCAN - OTHER ORDERS 10/18/2024 from Last 3 Months Results * MRI Knee Left WO Contrast (11/03/2024 3:23 PM BUSINESS APPLICATIONS MANAGER) Anatomical Region Laterality Modality Lower Extremities Left Magnetic Reson ance 11/03/2024 4:34 PM BUSINESS APPLICATIONS MANAGER Impressions 11/03/2024 4:50 PM BUSINESS APPLICATIONS MANAGER Moderate patellofemoral predominant osteoarthritis of the left knee. Dictated by: Ron Gil M.D. The radiology attending physician has personally reviewed this study, and had reviewed and/or edited this written report and agrees with it. Electronically signed by: Rupesh العلي MD Narrative 11/03/2024 4:50 PM BUSINESS APPLICATIONS MANAGER EXAMINATION: 1. MRI left knee without contrast HISTORY: ??Osteoarthritis of the left knee FINDINGS: No prior studies are available for comparison. MR examination of the left knee was performed with an extremity coil. Multiplanar, multisequence MRI examination of the left knee was completed without the administration of contrast according to standard protocol. In the medial compartment, the meniscus is intact. There is minimal chondrosis of the weightbearing portion of the femoral condyle. In the lateral compartment, the meniscus is intact. There is no chondrosis or subchondral edema of the lateral compartment. In the patellofemoral compartment, partial thickness chondrosis of the lateral patella with underlying subchondral cysts and edema. There is full-thickness chondrosis of the lateral trochlea with underlying subchondral edema and cysts. The cruciate and collateral ligaments are intact. The extensor mechanism is normal. The popliteus tendon is normal. There is a physiologic amount of fluid within the knee joint. No loose bodies are identified. The bone marrow signal is otherwise normal. Procedure Note Rupesh العلي MD - 11/03/2024 EXAMINATION: 1. MRI left knee without contrast HISTORY: Osteoarthritis of the left knee FINDINGS: No prior studies are available for comparison. MR examination of the left knee was performed with an extremity coil. Multiplanar, multisequence MRI examination of the left knee was completed without the administration of contrast according to standard protocol. In the medial compartment, the meniscus is intact. There is minimal chondrosis of the weightbearing portion of the femoral condyle. In the lateral compartment, the meniscus is intact. There is no chondrosis or subchondral edema of the lateral compartment. In the patellofemoral compartment, partial thickness chondrosis of the lateral patella with underlying subchondral cysts and edema. There is full-thickness chondrosis of the lateral trochlea with underlying subchondral edema and cysts. The cruciate and collateral ligaments are intact. The extensor mechanism is normal. The popliteus tendon is normal. There is a physiologic amount of fluid within the knee joint. No loose bodies are identified. The bone marrow signal is otherwise normal. IMPRESSION: Moderate patellofemoral predominant osteoarthritis of the left knee. Dictated by: Ron Gil M.D. The radiology attending physician has personally reviewed this study, and had reviewed and/or edited this written report and agrees with it. Electronically signed by: Rupesh العلي MD us Ilia Perez MD [facility] MRI PROCEDURES Final Res ult * MRI Knee Right WO Contrast (11/03/2024 3:23 PM BUSINESS APPLICATIONS MANAGER) Anatomical Region Laterality Modality Lower Extremities Right Magnetic Reson ance 11/03/2024 4:43 PM BUSINESS APPLICATIONS MANAGER Impressions 11/03/2024 4:50 PM BUSINESS APPLICATIONS MANAGER 1. ??Mild intramarginal tear involving the body of the medial meniscus. 2. ??Mild to moderate patellofemoral predominant osteoarthritis. Dictated by: Ron Gil M.D. The radiology attending physician has personally reviewed this study, and had reviewed and/or edited this written report and agrees with it. Electronically signed by: Rupesh العلي MD Narrative 11/03/2024 4:50 PM BUSINESS APPLICATIONS MANAGER EXAMINATION: 1. MRI right knee without contrast HISTORY: ??Osteoarthritis of the right knee FINDINGS: No priors are available for comparison. MR examination of the right knee was performed with an extremity coil. No intravenous or intra-articular contrast was administered for this examination. Multiplanar, multisequence MRI examination of the right knee was completed without administration of contrast. In the medial compartment, there is mild intramarginal tearing involving the body of the medial meniscus. There is minimal chondrosis of the medial compartment. In the lateral compartment, the meniscus is intact. There is no focal chondrosis or subchondral edema. In the patellofemoral compartment, there is partial-thickness chondrosis of the lateral trochlea with underlying subchondral edema. Mild partial-thickness chondrosis of the medial facet of the patella. The cruciate and collateral ligaments are intact. The extensor mechanism is normal. The popliteus tendon is normal. There is a physiologic amount of fluid within the knee joint. No loose bodies are identified. The bone marrow signal is normal. Procedure Note Rupesh العلي MD - 11/03/2024 EXAMINATION: 1. MRI right knee without contrast HISTORY: Osteoarthritis of the right knee FINDINGS: No priors are available for comparison. MR examination of the right knee was performed with an extremity coil. No intravenous or intra-articular contrast was administered for this examination. Multiplanar, multisequence MRI examination of the right knee was completed without administration of contrast. In the medial compartment, there is mild intramarginal tearing involving the body of the medial meniscus. There is minimal chondrosis of the medial compartment. In the lateral compartment, the meniscus is intact. There is no focal chondrosis or subchondral edema. In the patellofemoral compartment, there is partial-thickness chondrosis of the lateral trochlea with underlying subchondral edema. Mild partial-thickness chondrosis of the medial facet of the patella. The cruciate and collateral ligaments are intact. The extensor mechanism is normal. The popliteus tendon is normal. There is a physiologic amount of fluid within the knee joint. No loose bodies are identified. The bone marrow signal is normal. IMPRESSION: 1. Mild intramarginal tear involving the body of the medial meniscus. 2. Mild to moderate patellofemoral predominant osteoarthritis. Dictated by: Ron Gil M.D. The radiology attending physician has personally reviewed this study, and had reviewed and/or edited this written report and agrees with it. Electronically signed by: Rupesh العلي MD us Ilia KEYS MRI PROCEDURES Final Res ult * XR Pelvis 1 or 2 Views (11/03/2024 12:24 PM BUSINESS APPLICATIONS MANAGER) Anatomical Region Laterality Modality Body, Pelvis N/A Computed Radiogr aphy 11/03/2024 12:4 5 PM BUSINESS APPLICATIONS MANAGER Impressions 11/03/2024 12:45 PM BUSINESS APPLICATIONS MANAGER 1. ??Sacral nerve stimulator in expected position without fractured, retained or abandoned lead. Electronically signed by: Reuben Fish M.D. Narrative 11/03/2024 12:45 PM BUSINESS APPLICATIONS MANAGER EXAMINATION: XR PELVIS 1 OR 2 VIEWS HISTORY: magnetic resonance imaging screening FINDINGS: 2 view examination of the pelvis is read without comparison. ??Sacral nerve stimulator in place with intact lead terminating at the level of the left S3 neural foramen. ??No fractured, retained or abandoned lead. ??No radiodense metallic foreign body. ??Hip joint spaces are normal. ??Mild bilateral sacroiliac joint osteoarthritis. ??Lower lumbar degenerative changes noted. Procedure Note Reuben Banks MD - 11/03/2024 EXAMINATION: XR PELVIS 1 OR 2 VIEWS HISTORY: magnetic resonance imaging screening FINDINGS: 2 view examination of the pelvis is read without comparison. Sacral nerve stimulator in place with intact lead terminating at the level of the left S3 neural foramen. No fractured, retained or abandoned lead. No radiodense metallic foreign body. Hip joint spaces are normal. Mild bilateral sacroiliac joint osteoarthritis. Lower lumbar degenerative changes noted. IMPRESSION: 1. Sacral nerve stimulator in expected position without fractured, retained or abandoned lead. Electronically signed by: Reuben Fish M.D. [facility] IMG XR PROCEDURES Final Result * SCAN - OTHER ORDERS (10/18/2024) Provider Scanning Final Result from Last 3 Months Insurance [facility] HEALTHLINK OPEN ACCESS [facility] [id number] Member Subscriber Plan / Payer (Ef fective 2021-Present) Name:Asia Velasquez Member ID:[id number] Relation to Subscriber:Self Name:Asia Velasquez Subscriber ID:[id number] Payer ID:[id number] Type:[employer] HMO/PPO Address: [facility] [id number] [place] [id number] Care Teams Booth Usher Relationship Specialty Start Date End Date Eliane Hou MD [address] [place] [address] PCP - General Family Medicine 10/26/24
--- OUTSIDE RECORDS SUMMARY | 2024-12-14 22:26 | XMS_ITS | Referral Summary ---
Author Organization [facility] Address [address] [place] [address] Care Team Providers Care Power Generation Technician Name Role Phone Unavailable Primary Care Provider Unavailabl e Source Comments [facility],non-owned Affiliates and Associated Physician Practices is amultiple site organization consisting of ambulatory clinics and hospital sitesin [place], [place] and [place]. This disclosure is being madepursuant to the Care Everywhere program and may not contain all information available regarding this patient. Last updated 18.[facility] Social History Tobacco Use Types Packs/Day Years Used Date Smoking Tobacco: Never Assessed Sex and Gender Information Value Date Recorded Sex Assigned at Not on file Gender Identity Not on file Sexual Orientation Not on file Plan of Treatment Not on file
--- OUTSIDE RECORDS SUMMARY | 2024-12-14 22:26 | XMS_ITS | Clinical Summary ---
Author Organization [facility] Address [address] [place] [address] Care Team Providers Care Green Promotions Specialist Name Role Phone Eliane Hou MD Primary Care Provider [phone] Allergies Active Allergy Reactions Criticality Noted Date [...] omeprazole (PriLOSEC) 20 mg capsule daily. Active Encounters Date Type Department Care Team Description 11/03/2024 12:16 PM DISTRIBUTOR OF DIRECTORIES - 11/03/2024 11:59 PM [facility] Hospital Encounter [facility] [address] [place] [address] Rupesh العلي MD Encounter for imaging to screen for metal prior to magnetic resonance imaging (MRI) Discharge Disposition: Discharge to home or self care 11/03/2024 12:13 PM DISTRIBUTOR OF DIRECTORIES - 11/03/2024 11:59 PM [facility] Hospital Encounter [facility] [address] [place] [address] Unilateral primary osteoarthritis, left knee Discharge Disposition: Discharge to home or self care 10/18/2024 Orders Only [facility] Health Information Management [address] [place] [address] Scanning, Provider from Last 3 Months Surgical History Surgery Date Site/Laterality Comments [place] LAPS ABD PRTM&OMENTUM DX W/WO SPEC BR/WA SPX Laparoscopy (Diagnostic) - (1986). (Added by TW Conv) [place] TONSILLECTOMY PRIMARY/SEC ONDARY <AGE 12 Tonsillectomy - (Added by TW Conv) [place] LIG/TRNSXJ FLP TUBE ABDL/ VAG APPR UNI/BI Tubal Ligation - (Added by TW Conv) [place] CHOLECYSTECTOMY Cholecystectomy - (Added by TW Conv) [place] HYSTEROSCOPY BX ENDOMETRIUM&/POLYPC W/WO D&C Hysteroscopy - (Added by TW Conv) KNEE SURGERY Knee Surgery - (right). (Added by TW Conv) Medical History Medical History Date Comments Personal history of other di seases of the circulatory system History of hypertension - (A dded by TW Conv) Personal history of other en docrine, nutritional and metabolic disease History of hyperchol esterolemia - (Added by TW Conv) Personal history of other en docrine, nutritional and metabolic disease History of hypothyro idism - (Added by TW Conv) Chronic interstitial cystiti s without hematuria Interstitial cystitis - (Add ed by TW Conv) Family History Medical History Relation Name Comments Lung disease Father Family history of lung disease - (Added by TW Conv) Lung disease Mother Family history of lung disease - (Added by TW Conv) Relation Name Status Comments Father Mother Social History Tobacco Use Types Packs/Day Years Used Date Smoking Tobacco: Never Smokeless Tobacco: Never Comments Unknown Sex and Gender Information Value Date Recorded Sex Assigned at Not on file Legal Sex Female 12:12 AM DISTRIBUTOR OF DIRECTORIES Gender Identity Not on file Sexual Orientation Not on file Obstetrics History Last Filed Vital Signs Vital Sign Reading [...] 07/14/2019 10:49 AM CDT Plan of Treatment Health Maintenance Due Date Last Done Comments Breast Cancer Screening-Mammogram 1962 Cervical Cancer Screening 1962 Colon Cancer Screening-Colonoscopy 1962 Depression Screening 1962 Hepatitis C Screening 1962 Hepatitis B Screening 1980 Regular Well Visit/Exam 18-64 1980 DTaP/Tdap/Td Vaccine (1 - Tdap) 11/23/2006 11/22/2006 Covid-19 Vaccine ( season) 2024 12/13/2021, 01/21/2021, 12/24/2020 Zoster Vaccine Completed 01/09/2023, 09/09/2022 Influenza Vaccine Completed 09/01/2024, , 09/08/2019, Additional history exists Pneumococcal vaccine <65 Aged Out No longer eligible based on patient's age to complete this topic Medical Devices Implanted Type Area Preschool Teacher Aide Device Identifier Shelf Expiration Date Model / Serial / Lot Neurostimulator Bladder Implanted:Unknown , Notinfile (Quantity not on file) Neurostimulator Pelvis Medtronic Neuro [id number] / / Neurostimulator Bladder Lead Implanted:Qty: 1 by Unknown, Notinfile Neurostimulator Pelvis Medtronic Neuro [id number] / / Procedures Procedure Name Priority Date/Time Associated Diagnosis Comments MRI KNEE RIGHT WO CONTRAST Schedule Routine, Read Routine (OP Routine) 11/03/2024 3:23 PM DISTRIBUTOR OF DIRECTORIES Unilateral primary osteoarthritis, right knee MRI KNEE LEFT WO CONTRAST Schedule Routine, Read Routine (OP Routine) 11/03/2024 3:23 PM DISTRIBUTOR OF DIRECTORIES Unilateral primary osteoarthritis, left knee XR PELVIS 1 OR 2 VIEWS Schedule Routine, Read Routine (OP Routine) 11/03/2024 12:24 PM DISTRIBUTOR OF DIRECTORIES Encounter for imaging to screen for metal prior to magnetic resonance imaging (MRI) SCAN - OTHER ORDERS 10/18/2024 from Last 3 Months Results * MRI Knee Left WO Contrast (11/03/2024 3:23 PM DISTRIBUTOR OF DIRECTORIES) Anatomical Region Laterality Modality Lower Extremities Left Magnetic Reson ance 11/03/2024 4:34 PM DISTRIBUTOR OF DIRECTORIES Impressions 11/03/2024 4:50 PM DISTRIBUTOR OF DIRECTORIES Moderate patellofemoral predominant osteoarthritis of the left knee. Dictated by: Ron Gil M.D. The radiology attending physician has personally reviewed this study, and had reviewed and/or edited this written report and agrees with it. Electronically signed by: Rupesh العلي MD Narrative 11/03/2024 4:50 PM DISTRIBUTOR OF DIRECTORIES EXAMINATION: 1. MRI left knee without contrast [...] Rupesh العلي MD us Ilia Perez MD [facility] MRI PROCEDURES Final Res ult * MRI Knee Right WO Contrast (11/03/2024 3:23 PM DISTRIBUTOR OF DIRECTORIES) Anatomical Region Laterality Modality Lower Extremities Right Magnetic Reson ance 11/03/2024 4:43 PM DISTRIBUTOR OF DIRECTORIES Impressions 11/03/2024 4:50 PM DISTRIBUTOR OF DIRECTORIES 1. ??Mild intramarginal tear involving the body of the medial meniscus. 2. ??Mild to moderate patellofemoral predominant osteoarthritis. Dictated by: Ron Gil M.D. The radiology attending physician has personally reviewed this study, and had reviewed and/or edited this written report and agrees with it. Electronically signed by: Rupesh العلي MD Narrative 11/03/2024 4:50 PM DISTRIBUTOR OF DIRECTORIES EXAMINATION: 1. MRI right knee without contrast [...] it. Electronically signed by: Rupesh العلي MD Ilia Perez MD [facility] MRI PROCEDURES Final Res ult * XR Pelvis 1 or 2 Views (11/03/2024 12:24 PM DISTRIBUTOR OF DIRECTORIES) Anatomical Region Laterality Modality Body, Pelvis N/A Computed Radiogr aphy 11/03/2024 12:4 5 PM DISTRIBUTOR OF DIRECTORIES Impressions 11/03/2024 12:45 PM DISTRIBUTOR OF DIRECTORIES 1. ??Sacral nerve stimulator in expected position without fractured, retained or abandoned lead. Electronically signed by: Reuben Fish M.D. Narrative 11/03/2024 12:45 PM DISTRIBUTOR OF DIRECTORIES EXAMINATION: XR PELVIS 1 OR 2 VIEWS [...] lead. Electronically signed by: Reuben Fish M.D. [facility] XR PROCEDURES Final Result * SCAN - OTHER ORDERS (10/18/2024) Provider Scanning Final Result from Last 3 Months Insurance [facility] HEALTHLINK OPEN ACCESS HEALTHLINK [facility] HEALTHLINK OPEN ACCESS [facility] [id number] Care Teams Green Promotions Specialist Relationship Specialty Start Date End Date Eliane Hou MD [address] [place], [place] [id number] PCP - General Family Medicine 10/26/24
--- OUTSIDE RECORDS SUMMARY | 2024-12-14 22:26 | XMS_ITS ---
Author Organization Unknown Medications Medication Instructions Effective Dates (start - stop) Status prednisone 10 MG Oral Tablet [id number] 0:00:00Z - Completed {6 (azithromycin 250 MG Oral Tablet) } Pack - Completed levothyroxine sodium 0.112 M G Oral Tablet - Completed alendronic acid 70 MG Oral Tablet 2023-07:00:00Z - Completed alendronic acid 70 MG Oral Tablet 2024-01:00:00Z - Completed alendronic acid 70 MG Oral Tablet 2024-03:00:00Z - Completed alendronic acid 70 MG Oral Tablet 2023-1000:00:00Z - Completed potassium chloride 10 MEQ Ex tended Release Oral Capsule - Completed potassium chloride 10 MEQ Ex tended Release Oral Capsule - Completed hydrochlorothiazide 12.5 MG / lisinopril 20 MG Oral Tablet - Complete d - - Compl eted - - Compl eted {6 (azithromycin 250 MG Oral Tablet) } Pack - Completed potassium chloride 10 MEQ Ex tended Release Oral Capsule - Completed levothyroxine sodium 0.112 M G Oral Tablet - Completed - - Compl eted levothyroxine sodium 0.112 M G Oral Tablet - Completed chlorhexidine gluconate 1.2 MG/ML Mouthwash - Completed Patient Care team information Name Category Status Period Participants - - Proposed period not known -
--- OUTSIDE RECORDS SUMMARY | 2024-12-14 22:26 | XMS_ITS | Patient Health Summary ---
Author Organization [facility] Address [address] [place] [address] Care Team Providers Care Kier Tender Name Role Phone Unavailable Primary Care Provider Unavailabl e Note from [facility],non-owned Affiliates and Associated Physician Practices is amultiple site organization consisting of ambulatory clinics and hospital sitesin [place], [place], [place] and [place]. This disclosure is being madepursuant to the Care Everywhere program and may not contain all information available regarding this patient. Last updated 18.[facility] Social History Tobacco Use Types Packs/Day Years Used Date Smoking Tobacco: Never Assessed Sex and Gender Information Value Date Recorded Sex Assigned at Not on file Gender Identity Not on file Sexual Orientation Not on file Procedures * GROSS + MICRO EXAM(Performed 06/25/2003) Results * GROSS + MICRO EXAM (06/25/2003 12:00 AM CDT) Result CASE NUMBER [id number] Comment: ORDERING PHYSICIAN ??DUSTIN MCLEOD SPECIMEN TYPE ?Placenta Date ? 06/25/2003 Physician ?Rose Mcleod Description ? The specimen is received in a single formalin-filled container labeled with the patient's name and placenta . ??The specimen consists of a single placenta with attached membranes and cord. ??The placental disc measures 16 x 15 x 1.3 cm. and weighs 400 grams. ??The membranes are pinkish-rene and cloudy and are attached marginally. ??The umbilical cord is 36 cm. in length and 1 cm. in diameter. ??The umbilical cord is attached marginally (battledore) and has three vessels. ??The surface is bluish-rene and glistening with the usual vascular arcade. ?? The maternal surface is soft, deep pinkish rene with a small amount of adherent blood clot. ??On serial sectioning no infarcts are seen. ?? Commissary Manager sections are submitted in cassettes as follows ??cassette A, umbilical cord and membranes ??cassettes B and C, placental disc. MM/bk Microscopic Exam ? Sections of the placenta show a third trimester placenta. ??Occasional nucleated red blood cells are seen in the vessels. ?? Sections of the membranes are unremarkable. ?? Sections of the umbilical cord show a three vessel cord. ??No inflammation is seen. MM/bk Diagnosis ?I. ??Placenta ?A. ??Term placenta, weight 400 grams. ?B. ??Nucleated red blood cells (see comment). ? II. ?? membranes ?A. ??No pathologic diagnosis. ?III. ??Umbilical cord ?A. ??Three vessel cord. ?B. ??[place]. COMMENT ??The presence of nucleated red blood cells in the villous vessels is a normal finding in the first trimester, however, in the third trimester it could suggest hypoxia in the . MM/bk Mineral Mixer ? bk Pathologist ?Andrei Lee M.D. Snomed. ?06/26/2003 1405 <1> CPT code ? 98991 MISCELLANEOUS SAMPLE S / Unknown 06/25/2003 06/25/2003 9:39 AM CDT Historical Provider LAB - PATHOLOGY/C YTOLOGY ORDERABLES
== END 2024-12-13 09:24 | disposition home or self-care (01) ==
LOC: ANHSURGERY 09:27
PROVIDERS: Anesthesiology; PCP Family Medicine; Visit Provider Orthopaedic Surgery
DX: Z01.818 Encounter for other preprocedural examination (principal); I10 Essential (primary) hypertension; Z79.899 Other long term (current) drug therapy
CPT/HCPCS: 36415; 80048; 93005

== ENCOUNTER 2024-12-21 01:10 | Day surgery (SDC) | payer OTHER, SELFPAY ==
[2024-12-11 15:11] VITALS: BMI 26.0
--- NOTE | 2024-12-11 15:25 | PC.NURSE ---
Report to the Outpatient Waiting Room, entrance under the green pavilion located off [facility], at time _11:30 A.M__ on date _12/21/24 . Planned Procedure Time: _1:30 P.M. .? Time changes happen often and if your time is changed the preop area will call you the afternoon before. - You and your visitor will be asked to self-screen and do not enter if you have any COVID symptoms. Please call surgeon if you need to reschedule. - A mask is optional within the hospital at this time. Patients may have clear liquids (water, carbonated beverages, clear teas, apple juice) until 3 hours prior to surgery with a maximum of 20 ounces. - No food from midnight until time of surgery and no smoking. This includes no chewing gum, candy or mints. - Infants may have breast milk until 4 hours before surgery, formula 6 hours prior to surgery. - Children will be allowed to drink immediately following surgery.? If applicable, please bring a bottle or sippy cup to assist with drinking. Juice, water, soda, and popsicles are readily available.? For infants on formula, please bring formula the day of surgery.? Pacifiers are allowed. Take only the following medications with a SIP of water on the morning of surgery: _Levothyroxine DO NOT STOP ANY OF YOUR OTHER PRESCRIPTION MEDICATIONS PRIOR TO SURGERY EXCEPT THE FOLLOWING Medications to discontinue per physician ___Vitamins 3 days prior Please no make-up, nail congolese, hairspray, perfume, deodorant, or body powder the day of surgery.? No jewelry (including any body piercings) or valuables the day of surgery, leave them at home.? Please take a shower or bath the night before, or the morning of, surgery with an antibacterial soap.? Wear comfortable, loose fitting clothing.? Children are encouraged to wear pajamas. - Jewelry must be removed prior to entering the operating room.? Rings and piercings that are not removed may be cut off. - The hospital will not accept responsibility for valuables.? - Please leave all valuables, including medications, at home the day of surgery. If you are going home after surgery, a licensed city route driver must drive you home.? - NO public transportation without another adult if you receive anesthesia. - We recommend that an adult stay with you for 24 hours following discharge. - We also recommend that you do not drive, make important decision, drink alcoholic beverages, or take any drugs that were not prescribed by your health care provider for at least 24 hours after your discharge time. For Pediatric surgeries, we recommend two adults accompany the child home. Follow any additional instructions given to you from your surgeon. Telephone instructions given to _[place] and asked if any additional questions and then verbalized understanding. Patient advised to call surgeon office or pre surgery nurse liaison [phone] if any additional questions.
--- NOTE | 2024-12-20 15:32 | PM.IMHP ---
H&P: HPI History of Present Illness Date/Time: 12/20/24 15:32 Chief Complaint: Bilateral knee pain Narrative: 64-year-old woman with severe bilateral knee pain for the last 2 years. Unrelieved with cortisone injections, physical therapy, activity modification and exercise regimen. 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 Right knee shows meniscus tear as well as patellofemoral chondromalacia. She has failed conservative treatment and presents for operative treatment left knee gel injection right knee. Review of Systems Constitutional: Constitutional: Denies fever(s) Eyes: Eyes: Denies blurry vision ENT: Reports Normal hearing present Cardiovascular: Cardiovascular: Denies chest pain and Denies dyspnea Respiratory: Respiratory: Denies dyspnea and Denies wheezing Gastrointestinal: Gastrointestinal: Denies abdominal pain Genitourinary: Genitourinary: Denies urinary urgency Musculoskeletal: Musculoskeletal: Reports as per HPI and Denies numbness Integumentary/Breasts: Skin/Breast: Denies changing lesions and Denies sores Neurologic: Reports Normal hearing present, Denies behavioral changes, Denies confusion, Denies numbness and Denies convulsions Psychiatric: Psychiatric: Denies behavioral changes, Denies confusion and Denies hallucinations Endocrine: Endocrine: Denies heat intolerance Hematologic/Lymphatic: Hematologic/Lymphatic: Denies easy bleeding Allergic/Immunologic: Allergic/Immunologic: Denies wheezing PMFSH Past Medical History Medical History Acute medial meniscus tear of left knee BMI 23.0-23.9, adult Breast cancer screening Chronic renal insufficiency, stage III (moderate) Cubital tunnel syndrome Degenerative arthritis of left knee Degenerative arthritis of right knee Deviated septum Encounter for postoperative care GERD (gastroesophageal reflux disease) Hyperlipidemia Hyperlipidemia Hypertension Hypothyroidism Hypothyroidism (acquired) Lateral epicondylitis Osteopenia Primary hypertension Renal stones Right elbow pain Seasonal allergies 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 Surgical History Surgical History History of bladder surgery Bladder sling 07/14/10 History of cholecystectomy 07/28/07 History of colonoscopy 07/29/10, 10/31/19 History of esophagogastroduodenoscopy (EGD) 12/07/12 History of hysteroscopy 08/22/13 09/18/13 History of knee surgery Right knee arthroscopy 05/22/09 History of tonsillectomy History of tubal ligation Family History Family History Father Family history of lung cancer Mother Family history of lung cancer Sibling Family history of obesity Depression Family history of migraine headaches Family history of osteoarthritis Patient's sister is in good health Patient's brother is in good health Family history of irritable bowel syndrome Mother Hypertension Family history of osteoarthritis Cerebrovascular accident Family history of lung cancer, Onset Age: 72 Family history of emphysema Family history of irritable bowel syndrome Father Family history of lung cancer, Onset Age: 68 Family history of emphysema Patient's father is Grandparent Family history of coronary artery disease Other Diabetes mellitus Family history of arthritis Family history of cardiovascular disease Family history of malignant neoplasm Social History Social History Smoking status: Never smoker Second hand tobacco smoke exposure: No Alcohol intake: current Drinks per week: 0 Alcohol use details: (1-2x/month) Substance use: never Substance use type: does not use Lack of Transportation: No Lack of Food: Never True Current Housing: I Have Housing Concerned About Future Housing: No Difficulty Paying Gas/Electric Bills: No Difficulty Paying for Meds: No Currently Unemployed: No Education: High School Diploma/GED Difficulty w/ Childcare or Family Care: No Living arrangements: with family Gender identity (if verbalized by the patient): Female Spiritual care concerns: No Agree to blood products: Yes Meds Home Medications and Allergies Home Medications ?Medication ?Instructions ?Recorded ?Confirmed ?Type multivitamin 1 tablet PO DAILY 10/30/19 12/11/24 History vitamins A,C,Y-iigs-uxmcvy 4,296 1 cap PO BID 10/27/21 12/11/24 History mcg-226 mg-90 mg capsule (PreserVision AREDS) alendronate 70 mg tablet 70 mg PO WEEKLY 05/31/23 12/11/24 History cholecalciferol (vitamin D3) 1,250 1,250 mcg PO MONTHLY 05/31/23 12/11/24 History mcg (50,000 unit) tablet (Dialyvite Vitamin D3 Max) omeprazole magnesium 20 mg 20 mg PO DAILY 05/31/23 12/11/24 History capsule,delayed release (Acid Medication Administration Professional (omeprazole)) fenofibrate 160 mg tablet 80 mg (1/2 x 160 mg) PO DAILY #45 05/29/24 12/11/24 Rx tabs lisinopril 20 1 tablet PO BID 09/14/24 12/11/24 History mg-hydrochlorothiazide 12.5 mg tablet potassium chloride 10 mEq 10 meq PO .TWICE WEEKLY #30 caps 10/02/24 12/11/24 Rx capsule,extended release levothyroxine 112 mcg tablet 112 mcg PO DAILY #90 tabs 10/23/24 12/11/24 Rx (Euthyrox) Allergies Allergy/AdvReac Type Severity Reaction Status Date / Time Penicillins Allergy Unknown RASH Verified 12/11/24 15:00 Exam Const: General: healthy appearing; No in distress or confusion Orientation/consciousness: oriented to person, oriented to place, oriented to time and No confusion HENMT: Head: normal to inspection, normocephalic and atraumatic Eyes: Conjunctivae: conjunctivae normal Sclera: sclerae normal Neck: Neck: supple and nontender Resp: Effort & Inspection: normal respiratory effort and no audible wheezes Cardio: Rate: regular rate Rhythm: regular rhythm Skin: General skin exam: no rashes or lesions noted Neuro: General: oriented to person, oriented to place, oriented to time and No confusion Extrem: Right upper extremity: normal to inspection Left upper extremity: normal to inspection Right lower extremity: hip/thigh Details: normal ROM; no tenderness, knee Details: tenderness (anterior and medial joint line) Location: of the medial joint line (moderate) and of the pre-patellar area (moderate), swelling (peripatellar and medial joint ), abnormal ROM (active range of motion -10 degrees, 110 degrees flexion) Details: pain with active ROM during Details: in extension and in flexion, knee ligament exam normal Details: anterior drawer test normal, posterior drawer test normal, valgus stress test normal and Fide?s test normal, knee ligament exam abnormal Details: varus stress test normal (painful medial) and Radha's Test Details: positive medially and foot Details: normal capillary refill, toes with normal ROM, vascular exam Details: dorsalis pedis pulse present and motor-sensory exam Details: light-touch normal; no tenderness; no edema Left lower extremity: normal to inspection, normal capillary refill, hip/thigh Details: normal ROM; no tenderness, knee Details: tenderness Location: of the patella, of the medial joint line and of the infrapatellar area, swelling Location: of the infrapatellar area (mild), abnormal ROM (active extension -10, flexion 110), knee ligament exam normal Details: anterior drawer test normal, posterior drawer test normal, valgus stress test normal, varus stress test normal and Fide's test normal, Radha's Test Details: negative laterally and positive medially and crepitus Location: at the patella (mild) and foot Details: toes with normal ROM, vascular exam Details: dorsalis pedis pulse present and normal capillary refill and motor-sensory exam light-touch normal; no tenderness Psych: Affect: normal affect
--- NOTE | 2024-12-20 15:33 | PM.IMHP ---
H&P: HPI History of Present Illness Date/Time: 12/20/24 15:33 Chief Complaint: Bilateral knee pain left greater than right Narrative: 64-year-old woman with severe bilateral knee pain for the last 2 years. Unrelieved with cortisone injections, physical therapy, activity modification and exercise regimen. 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 Right knee shows meniscus tear as well as patellofemoral chondromalacia. She has failed conservative treatment and presents for operative treatment left knee gel injection right knee. Review of Systems Constitutional: Constitutional: Denies fever(s) Eyes: Eyes: Denies blurry vision ENT: Reports Normal hearing present Cardiovascular: Cardiovascular: Denies chest pain and Denies dyspnea Respiratory: Respiratory: Denies dyspnea and Denies wheezing Gastrointestinal: Gastrointestinal: Denies abdominal pain Genitourinary: Genitourinary: Denies urinary urgency Musculoskeletal: Musculoskeletal: Reports as per HPI and Denies numbness Integumentary/Breasts: Skin/Breast: Denies changing lesions and Denies sores Neurologic: Reports Normal hearing present, Denies behavioral changes, Denies confusion, Denies numbness and Denies convulsions Psychiatric: Psychiatric: Denies behavioral changes, Denies confusion and Denies hallucinations Endocrine: Endocrine: Denies heat intolerance Hematologic/Lymphatic: Hematologic/Lymphatic: Denies easy bleeding Allergic/Immunologic: Allergic/Immunologic: Denies wheezing PMFSH Past Medical History Medical History (Updated 12/20/24 @ 15:36 by Ilia [place] MD) Synovitis of left knee Chondromalacia of left patellofemoral joint Degenerative arthritis of right knee Osteopenia Degenerative arthritis of left knee Acute medial meniscus tear of left knee Cubital tunnel syndrome Ulnar nerve entrapment at elbow Chronic renal insufficiency, stage III (moderate) Encounter for postoperative care Deviated septum BMI 23.0-23.9, adult Seasonal allergies Hypothyroidism (acquired) Hyperlipidemia Primary hypertension Breast cancer screening Lateral epicondylitis 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 Right elbow pain Hypothyroidism Renal stones GERD (gastroesophageal reflux disease) Hypertension Hyperlipidemia Surgical History Surgical History History of hysteroscopy 08/22/13 09/18/13 History of esophagogastroduodenoscopy (EGD) 12/07/12 History of colonoscopy 07/29/10, 10/31/19 History of bladder surgery Bladder sling 07/14/10 History of knee surgery Right knee arthroscopy 05/22/09 History of cholecystectomy 07/28/07 History of tubal ligation History of tonsillectomy Family History Family History Father Family history of lung cancer Mother Family history of lung cancer Sibling Family history of obesity Depression Family history of migraine headaches Family history of osteoarthritis Patient's sister is in good health Patient's brother is in good health Family history of irritable bowel syndrome Mother Hypertension Family history of osteoarthritis Cerebrovascular accident Family history of lung cancer, Onset Age: 72 Family history of emphysema Family history of irritable bowel syndrome Father Family history of lung cancer, Onset Age: 68 Family history of emphysema Patient's father is Grandparent Family history of coronary artery disease Other Diabetes mellitus Family history of arthritis Family history of cardiovascular disease Family history of malignant neoplasm Social History Social History Smoking status: Never smoker Second hand tobacco smoke exposure: No Alcohol intake: current Drinks per week: 0 Alcohol use details: (1-2x/month) Substance use: never Substance use type: does not use Lack of Transportation: No Lack of Food: Never True Current Housing: I Have Housing Concerned About Future Housing: No Difficulty Paying Gas/Electric Bills: No Difficulty Paying for Meds: No Currently Unemployed: No Education: High School Diploma/GED Difficulty w/ Childcare or Family Care: No Living arrangements: with family Gender identity (if verbalized by the patient): Female Spiritual care concerns: No Agree to blood products: Yes Meds Home Medications and Allergies Home Medications ?Medication ?Instructions ?Recorded ?Confirmed ?Type multivitamin 1 tablet PO DAILY 10/30/19 12/11/24 History vitamins A,C,X-qupn-mjbzob 4,296 1 cap PO BID 10/27/21 12/11/24 History mcg-226 mg-90 mg capsule (PreserVision AREDS) alendronate 70 mg tablet 70 mg PO WEEKLY 05/31/23 12/11/24 History cholecalciferol (vitamin D3) 1,250 1,250 mcg PO MONTHLY 05/31/23 12/11/24 History mcg (50,000 unit) tablet (Dialyvite Vitamin D3 Max) omeprazole magnesium 20 mg 20 mg PO DAILY 05/31/23 12/11/24 History capsule,delayed release (Acid Spa Experience Coordinator (omeprazole)) fenofibrate 160 mg tablet 80 mg (1/2 x 160 mg) PO DAILY #45 05/29/24 12/11/24 Rx tabs lisinopril 20 1 tablet PO BID 09/14/24 12/11/24 History mg-hydrochlorothiazide 12.5 mg tablet potassium chloride 10 mEq 10 meq PO .TWICE WEEKLY #30 caps 10/02/24 12/11/24 Rx capsule,extended release levothyroxine 112 mcg tablet 112 mcg PO DAILY #90 tabs 10/23/24 12/11/24 Rx (Euthyrox) Allergies Allergy/AdvReac Type Severity Reaction Status Date / Time Penicillins Allergy Unknown RASH Verified 12/11/24 15:00 Exam Const: General: healthy appearing; No in distress or confusion Orientation/consciousness: oriented to person, oriented to place, oriented to time and No confusion HENMT: Head: normal to inspection, normocephalic and atraumatic Eyes: Conjunctivae: conjunctivae normal Sclera: sclerae normal Neck: Neck: supple and nontender Resp: Effort & Inspection: normal respiratory effort and no audible wheezes Cardio: Rate: regular rate Rhythm: regular rhythm Skin: General skin exam: no rashes or lesions noted Neuro: General: oriented to person, oriented to place, oriented to time and No confusion Extrem: Right upper extremity: normal to inspection Left upper extremity: normal to inspection Right lower extremity: hip/thigh Details: normal ROM; no tenderness, knee Details: tenderness (anterior and medial joint line) Location: of the medial joint line (moderate) and of the pre-patellar area (moderate), swelling (peripatellar and medial joint ), abnormal ROM (active range of motion -10 degrees, 110 degrees flexion) Details: pain with active ROM during Details: in extension and in flexion, knee ligament exam normal Details: anterior drawer test normal, posterior drawer test normal, valgus stress test normal and Fide?s test normal, knee ligament exam abnormal Details: varus stress test normal (painful medial) and Radha's Test Details: positive medially and foot Details: normal capillary refill, toes with normal ROM, vascular exam Details: dorsalis pedis pulse present and motor-sensory exam Details: light-touch normal; no tenderness; no edema Left lower extremity: normal to inspection, normal capillary refill, hip/thigh Details: normal ROM; no tenderness, knee Details: tenderness Location: of the patella, of the medial joint line and of the infrapatellar area, swelling Location: of the infrapatellar area (mild), abnormal ROM (active extension -10, flexion 110), knee ligament exam normal Details: anterior drawer test normal, posterior drawer test normal, valgus stress test normal, varus stress test normal and Fide's test normal, Radha's Test Details: negative laterally and positive medially and crepitus Location: at the patella (mild) and foot Details: toes with normal ROM, vascular exam Details: dorsalis pedis pulse present and normal capillary refill and motor-sensory exam light-touch normal; no tenderness Psych: Affect: normal affect Assessment and Plan Assessment and plan (1) Degenerative arthritis of left knee: Qualifiers: Osteoarthritis type: primary Qualified Code(s): M17.12 - Unilateral primary osteoarthritis, left knee Code(s): M17.12 - Unilateral primary osteoarthritis, left knee Status: Acute (2) Degenerative arthritis of right knee: Qualifiers: Osteoarthritis type: primary Qualified Code(s): M17.11 - Unilateral primary osteoarthritis, right knee Code(s): M17.11 - Unilateral primary osteoarthritis, right knee Status: Acute Assessment and Plan: The patient responded well to cortisone injections for pain relief but would now benefit from the longer efficacy of gel injections. Discussed gel injection procedure at length. Signs and symptoms of gel injection reactions reviewed in depth. Injection performed under sterile conditions, tolerated well. See procedure note for details. Post-injection instructions dispensed. Activity restrictions reviewed. Follow up in 1 week for continuation of injection series. Resume home exercise program for knee conditioning in 48 hours. (3) Chondromalacia of left patellofemoral joint: Code(s): M22.42 - Chondromalacia patellae, left knee Status: Acute Assessment and Plan: left knee pain, chondromalacia and lateral riding patella as noted on MRI. Patient has failed non operative treatment including cortisone injection, therapy, exercises and bracing. Desires operative treatment. Discussed nonoperative and operative treatment options with the patient. Risks and benefits of each as well as alternatives were reviewed. All of the patient's questions were answered. The risks of surgery reviewed including but not limited to: Neurovascular damage, wound complication, infection, blood clot, pulmonary embolus, stroke, myocardial infarction, and anesthetic risks up to and including . Continued pain and possible dysfunction were explained. Specific risks of the procedure including later recurrence of deformity. No guarantees were offered. If hardware used, discussed risk of failure/ breakage and possible need for removal. If complications occur, the patient understands the need for further treatment, possible further surgery. Patient verbalizes understanding and wishes to proceed. PLAN: Left knee arthroscopy with debridement, synovectomy, chondroplasty and lateral release. Proceed as indicated. Right knee intra-articular gel injection (4) Synovitis of left knee: Code(s): M65.962 - Unspecified synovitis and tenosynovitis, left lower leg Status: Acute
[2024-12-21] VITALS (7 sets, daily range): BP systolic 93–122; BP diastolic 39–67; PULSE 65–79; RESP 12–18; TEMP 36.7–36.8; O2SAT 96–99
--- OUTSIDE RECORDS SUMMARY | 2024-12-21 01:12 | XMS_ITS | Clinical Summary ---
Author Organization [facility] Address [address] [place] [address] Care Team Providers Care Delivery Recruiter Name Role Phone Unavailable Primary Care Provider Unavailabl e Source Comments [facility],non-owned Affiliates and Associated Physician Practices is amultiple site organization consisting of ambulatory clinics and hospital sitesin [place], [place], [place] and [place]. This disclosure is being madepursuant to the Care Everywhere program and may not contain all information available regarding this patient. Last updated 18.[facility] Social History Tobacco Use Types Packs/Day Years [...]
--- OUTSIDE RECORDS SUMMARY | 2024-12-21 01:12 | XMS_ITS | Patient Health Summary ---
Author Organization [facility] Address [address] [address] Care Team Providers Care Computational Linguist Name Role Phone Unavailable Primary Care Provider Unavailabl e Note from [facility] [place],non-owned Affiliates and Associated Physician Practices is amultiple site organization consisting of ambulatory clinics and hospital sitesin [place], [place], [place] and [place]. This disclosure is being madepursuant to the Care Everywhere program and may not contain all information available regarding this patient. Last updated 18.[facility] Social History Tobacco Use Types [...] serial sectioning no infarcts are seen. ?? Christian Counselor sections are submitted in cassettes as follows [...] could suggest hypoxia in the . MM/bk Emu Farmer ? bk Pathologist ?Andrei Lee M.D. Snomed. ?06/26/2003 1405 <1> CPT code ? 38064 MISCELLANEOUS SAMPLE S / Unknown 06/25/2003 06/25/2003 9:39 AM CDT Historical Provider LAB - PATHOLOGY/C YTOLOGY ORDERABLES
--- OUTSIDE RECORDS SUMMARY | 2024-12-21 01:12 | XMS_ITS | Referral Summary ---
Author Organization [facility] Address [address] [place] [address] Care Team Providers Care Clay Products Glazer Name Role Phone Unavailable Primary Care Provider Unavailabl e Source Comments [facility],non-owned Affiliates and Associated Physician Practices is amultiple site organization consisting of ambulatory clinics and hospital sitesin [place], [place] and [place]. This disclosure is being madepursuant to the Care Everywhere program and may not contain all information available regarding this patient. Last updated 18.[facility] Social History Tobacco Use Types Packs/Day Years Used Date Smoking Tobacco: Never Assessed Sex and Gender Information Value Date Recorded Sex Assigned at Not on file Gender Identity Not on file Sexual Orientation Not on file Plan of Treatment Not on file
--- OUTSIDE RECORDS SUMMARY | 2024-12-21 01:12 | XMS_ITS ---
Author Organization Unknown Medications Medication Instructions Effective Dates (start - stop) Status prednisone 10 MG Oral Tablet [id number] 0:00:00Z - Completed {6 (azithromycin 250 MG [...]
--- OUTSIDE RECORDS SUMMARY | 2024-12-21 01:13 | XMS_ITS | Referral Summary ---
Author Organization [facility] Address [address] [place] [address] Care Team Providers Care Industrial Plant Custodian Name Role Phone Eliane Hou MD Primary Care Provider Encounters Date Type Department Care Team Description 11/03/2024 12:16 PM EXECUTIVE VICE PRESIDENT AND CHIEF FINANCIAL OFFICER - 11/03/2024 11:[address] [facility] Hospital Encounter [facility] ([facility]) [address] [place] [address] Rupesh العلي MD Encounter for imaging to screen for metal prior to magnetic resonance imaging (MRI) Discharge Disposition: Discharge to home or self care 11/03/2024 12:13 PM EXECUTIVE VICE PRESIDENT AND CHIEF FINANCIAL OFFICER - 11/03/2024 11:[address] [facility] Hospital Encounter [facility] ([facility]) [address] [place] [address] Unilateral primary osteoarthritis, left knee Discharge Disposition: Discharge to home or self care 10/18/2024 Orders Only [facility] Health Information Management [address] [place] [address] Scanning, Provider from Last 3 Months Allergies [...] on file Legal Sex Female 12:12 AM EXECUTIVE VICE PRESIDENT AND CHIEF FINANCIAL OFFICER Gender Identity Not on file Sexual Orientation [...] on file Medical Devices Implanted Type Area Research Specialist Device Identifier Shelf Expiration Date Model / Serial / Lot Neurostimulator Bladder Implanted:Unknown , Notinfile (Quantity not on file) Neurostimulator Pelvis Medtronic Neuro [id number] / / Neurostimulator Bladder Lead Implanted:Qty: 1 by Unknown, Notinfile Neurostimulator Pelvis Medtronic Neuro [id number] / / Procedures Procedure Name Priority Date/Time Associated Diagnosis Comments MRI KNEE RIGHT WO CONTRAST Schedule Routine, Read Routine (OP Routine) 11/03/2024 3:23 PM EXECUTIVE VICE PRESIDENT AND CHIEF FINANCIAL OFFICER Unilateral primary osteoarthritis, right knee MRI KNEE LEFT WO CONTRAST Schedule Routine, Read Routine (OP Routine) 11/03/2024 3:23 PM EXECUTIVE VICE PRESIDENT AND CHIEF FINANCIAL OFFICER Unilateral primary osteoarthritis, left knee XR PELVIS 1 OR 2 VIEWS Schedule Routine, Read Routine (OP Routine) 11/03/2024 12:24 PM EXECUTIVE VICE PRESIDENT AND CHIEF FINANCIAL OFFICER Encounter for imaging to screen for metal prior to magnetic resonance imaging (MRI) SCAN - OTHER ORDERS 10/18/2024 from Last 3 Months Results * MRI Knee Left WO Contrast (11/03/2024 3:23 PM EXECUTIVE VICE PRESIDENT AND CHIEF FINANCIAL OFFICER) Anatomical Region Laterality Modality Lower Extremities Left Magnetic Reson ance 11/03/2024 4:34 PM EXECUTIVE VICE PRESIDENT AND CHIEF FINANCIAL OFFICER Impressions 11/03/2024 4:50 PM EXECUTIVE VICE PRESIDENT AND CHIEF FINANCIAL OFFICER Moderate patellofemoral predominant osteoarthritis of the left knee. Dictated by: Ron Gil M.D. The radiology attending physician has personally reviewed this study, and had reviewed and/or edited this written report and agrees with it. Electronically signed by: Rupesh العلي MD Narrative 11/03/2024 4:50 PM EXECUTIVE VICE PRESIDENT AND CHIEF FINANCIAL OFFICER EXAMINATION: 1. MRI left knee without contrast [...] Rupesh العلي MD us Ilia Perez MD [facility] MRI PROCEDURES Final Res ult * MRI Knee Right WO Contrast (11/03/2024 3:23 PM EXECUTIVE VICE PRESIDENT AND CHIEF FINANCIAL OFFICER) Anatomical Region Laterality Modality Lower Extremities Right Magnetic Reson ance 11/03/2024 4:43 PM EXECUTIVE VICE PRESIDENT AND CHIEF FINANCIAL OFFICER Impressions 11/03/2024 4:50 PM EXECUTIVE VICE PRESIDENT AND CHIEF FINANCIAL OFFICER 1. ??Mild intramarginal tear involving the body of the medial meniscus. 2. ??Mild to moderate patellofemoral predominant osteoarthritis. Dictated by: Ron Gil M.D. The radiology attending physician has personally reviewed this study, and had reviewed and/or edited this written report and agrees with it. Electronically signed by: Rupesh العلي MD Narrative 11/03/2024 4:50 PM EXECUTIVE VICE PRESIDENT AND CHIEF FINANCIAL OFFICER EXAMINATION: 1. MRI right knee without contrast [...] 1 or 2 Views (11/03/2024 12:24 PM EXECUTIVE VICE PRESIDENT AND CHIEF FINANCIAL OFFICER) Anatomical Region Laterality Modality Body, Pelvis N/A Computed Radiogr aphy 11/03/2024 12:4 5 PM EXECUTIVE VICE PRESIDENT AND CHIEF FINANCIAL OFFICER Impressions 11/03/2024 12:45 PM EXECUTIVE VICE PRESIDENT AND CHIEF FINANCIAL OFFICER 1. ??Sacral nerve stimulator in expected position without fractured, retained or abandoned lead. Electronically signed by: Reuben Fish M.D. Narrative 11/03/2024 12:45 PM EXECUTIVE VICE PRESIDENT AND CHIEF FINANCIAL OFFICER EXAMINATION: XR PELVIS 1 OR 2 VIEWS [...] lead. Electronically signed by: Reuben Fish M.D. [facility] IMG XR PROCEDURES Final Result * SCAN - OTHER ORDERS (10/18/2024) Provider Scanning Final Result from Last 3 Months Insurance [facility] HEALTHLINK OPEN ACCESS HEALTHLINK [facility] HEALTHLINK OPEN ACCESS [facility] [id number] Member Subscriber Plan / Payer (Ef fective 2021-Present) Name:Asia Velasquez Member ID:[id number] Relation to Subscriber:Self Name:Asia Velasquez Subscriber ID:[id number] Payer ID:[id number] Type:[place] 100e HMO/PPO Address: [facility] [id number] [place] [id number] Care Teams Industrial Plant Custodian Relationship Specialty Start Date End Date Eliane Hou MD [address] [address] PCP - General Family Medicine 10/26/24
--- OUTSIDE RECORDS SUMMARY | 2024-12-21 01:13 | XMS_ITS | Clinical Summary ---
Author Organization [facility] Address [address] [place] [address] Care Team Providers Care Progress Developer Name Role Phone Eliane Hou MD Primary Care Provider [phone] Allergies Active Allergy Reactions Criticality Noted Date [...] Department Care Team Description 11/03/2024 12:16 PM WAREHOUSE INSULATION WORKER - 11/03/2024 11:59 PM [facility] Hospital Encounter [facility] [address] [place] [address] Rupesh العلي MD Encounter for imaging to screen for metal prior to magnetic resonance imaging (MRI) Discharge Disposition: Discharge to home or self care 11/03/2024 12:13 PM WAREHOUSE INSULATION WORKER - 11/03/2024 11:59 PM [facility] Hospital Encounter [facility] ([facility]) [address] [place] [address] Unilateral primary osteoarthritis, left knee Discharge Disposition: Discharge to home or self care 10/18/2024 Orders Only [facility] Health Information Management [address] [place] [address] Scanning, Provider from Last 3 Months Surgical History Surgery Date Site/Laterality Comments [place] LAPS ABD PRTM&OMENTUM DX W/WO SPEC BR/WA SPX Laparoscopy (Diagnostic) - (1986). (Added by TW Conv) [place] TONSILLECTOMY PRIMARY/SEC ONDARY <AGE 14 Tonsillectomy - (Added by TW Conv) [place] LIG/TRNSXJ FLP TUBE ABDL/ VAG APPR UNI/BI Tubal Ligation - (Added by TW Conv) [place] CHOLECYSTECTOMY Cholecystectomy - (Added by TW Conv) [place] HYSTEROSCOPY BX ENDOMETRIUM&/POLYPC W/WO D&C Hysteroscopy - [...] on file Legal Sex Female 12:12 AM WAREHOUSE INSULATION WORKER Gender Identity Not on file Sexual Orientation [...] this topic Medical Devices Implanted Type Area Prospecting Driller Helper Device Identifier Shelf Expiration Date Model / Serial / Lot Neurostimulator Bladder Implanted:Unknown , Notinfile (Quantity not on file) Neurostimulator Pelvis Medtronic Neuro [id number] / / Neurostimulator Bladder Lead Implanted:Qty: 1 by Unknown, Notinfile Neurostimulator Pelvis Medtronic Neuro [id number] / / Procedures Procedure Name Priority Date/Time Associated Diagnosis Comments MRI KNEE RIGHT WO CONTRAST Schedule Routine, Read Routine (OP Routine) 11/03/2024 3:23 PM WAREHOUSE INSULATION WORKER Unilateral primary osteoarthritis, right knee MRI KNEE LEFT WO CONTRAST Schedule Routine, Read Routine (OP Routine) 11/03/2024 3:23 PM WAREHOUSE INSULATION WORKER Unilateral primary osteoarthritis, left knee XR PELVIS 1 OR 2 VIEWS Schedule Routine, Read Routine (OP Routine) 11/03/2024 12:24 PM WAREHOUSE INSULATION WORKER Encounter for imaging to screen for metal prior to magnetic resonance imaging (MRI) SCAN - OTHER ORDERS 10/18/2024 from Last 3 Months Results * MRI Knee Left WO Contrast (11/03/2024 3:23 PM WAREHOUSE INSULATION WORKER) Anatomical Region Laterality Modality Lower Extremities Left Magnetic Reson ance 11/03/2024 4:34 PM WAREHOUSE INSULATION WORKER Impressions 11/03/2024 4:50 PM WAREHOUSE INSULATION WORKER Moderate patellofemoral predominant osteoarthritis of the left knee. Dictated by: Ron Gil M.D. The radiology attending physician has personally reviewed this study, and had reviewed and/or edited this written report and agrees with it. Electronically signed by: Rupesh العلي MD Narrative 11/03/2024 4:50 PM WAREHOUSE INSULATION WORKER EXAMINATION: 1. MRI left knee without contrast [...] Rupesh العلي MD us Ilia Perez MD [facility] MRI PROCEDURES Final Res ult * MRI Knee Right WO Contrast (11/03/2024 3:23 PM WAREHOUSE INSULATION WORKER) Anatomical Region Laterality Modality Lower Extremities Right Magnetic Reson ance 11/03/2024 4:43 PM WAREHOUSE INSULATION WORKER Impressions 11/03/2024 4:50 PM WAREHOUSE INSULATION WORKER 1. ??Mild intramarginal tear involving the body of the medial meniscus. 2. ??Mild to moderate patellofemoral predominant osteoarthritis. Dictated by: Ron Gil M.D. The radiology attending physician has personally reviewed this study, and had reviewed and/or edited this written report and agrees with it. Electronically signed by: Rupesh العلي MD Narrative 11/03/2024 4:50 PM WAREHOUSE INSULATION WORKER EXAMINATION: 1. MRI right knee without contrast [...] by: Rupesh العلي MD Ilia Perez MD [facility] MRI PROCEDURES Final Res ult * XR Pelvis 1 or 2 Views (11/03/2024 12:24 PM WAREHOUSE INSULATION WORKER) Anatomical Region Laterality Modality Body, Pelvis N/A Computed Radiogr aphy 11/03/2024 12:4 5 PM WAREHOUSE INSULATION WORKER Impressions 11/03/2024 12:45 PM WAREHOUSE INSULATION WORKER 1. ??Sacral nerve stimulator in expected position without fractured, retained or abandoned lead. Electronically signed by: Reuben Fish M.D. Narrative 11/03/2024 12:45 PM WAREHOUSE INSULATION WORKER EXAMINATION: XR PELVIS 1 OR 2 VIEWS [...] lead. Electronically signed by: Reuben Fish M.D. [facility] IMG XR PROCEDURES Final Result * SCAN - OTHER ORDERS (10/18/2024) Provider Scanning Final Result from Last 3 Months Insurance [facility] HEALTHLINK OPEN ACCESS HEALTHLINK [facility] HEALTHLINK OPEN ACCESS [facility] [id number] Care Teams Progress Developer Relationship Specialty Start Date End Date Eliane Hou MD [address] [place], [place] [id number] PCP - General Family Medicine 10/26/24
--- NOTE | 2024-12-21 10:10 | WPDHPUPDATE1 ---
History and Physical Update Update Date/Time: 12/21/24 10:10 History and Physical has been reviewed, including an updated exam of the patient. There are NO changes in the patient's condition. Risks, benefits, and alternatives have been discussed and questions answered. Patient agrees to proceed with procedure.
[2024-12-21] MEDS: LACTATED RINGERS 1,000 ML 30 ML IV CONT ×2 (13:00→16:51)
[2024-12-21] MEDS: ACETAMINOPHEN 500 MG TABLET 1000 MG PO (13:39)
[2024-12-21] MEDS: KETOROLAC 15 MG/ML VIAL (*BKC) IV PUSH (13:39)
--- NOTE | 2024-12-21 13:41 | WPDANESEPPF ---
Anes - Initial Pre Proc Eval Procedure: Operation Date: 12/21/24 14:30 Proposed Procedures p Left Knee Arthroscopy with Synovectomy Lateral Release, Right Knee Gel Injection - Ilia Perez MD Date/Time: 12/21/24 13:41 Surgeon: Ilia Perez MD Pre Op Diagnosis: Lt Knee Pain, Bilateral Patellafemoral Arthritis Patient Data Age: 64 Gender: F Height: 1.55 m Weight: 62.6 kg Allergies Allergy/AdvReac Type Severity Reaction Status Date / Time Penicillins Allergy Unknown RASH Verified 12/21/24 13:34 Home Medications ?Medication ?Instructions ?Recorded ?Confirmed ?Type multivitamin 1 tablet PO DAILY 10/30/19 12/21/24 History vitamins A,C,G-wlob-xojhfi 4,296 1 cap PO BID 10/27/21 12/21/24 History mcg-226 mg-90 mg capsule (PreserVision AREDS) alendronate 70 mg tablet 70 mg PO WEEKLY 05/31/23 12/21/24 History cholecalciferol (vitamin D3) 1,250 1,250 mcg PO MONTHLY 05/31/23 12/21/24 History mcg (50,000 unit) tablet (Dialyvite Vitamin D3 Max) omeprazole magnesium 20 mg 20 mg PO DAILY 05/31/23 12/21/24 History capsule,delayed release (Acid Ball Rolling Machine Operator (omeprazole)) fenofibrate 160 mg tablet 80 mg (1/2 x 160 mg) PO DAILY #45 05/29/24 12/21/24 Rx tabs lisinopril 20 1 tablet PO BID 09/14/24 12/21/24 History mg-hydrochlorothiazide 12.5 mg tablet potassium chloride 10 mEq 10 meq PO .TWICE WEEKLY #30 caps 10/02/24 12/21/24 Rx capsule,extended release levothyroxine 112 mcg tablet 112 mcg PO DAILY #90 tabs 10/23/24 12/21/24 Rx (Euthyrox) Patient hx anesthesia problems: post op nausea/vomiting Family hx anesthesia problems: none Results Review: All pre-operative results and documents have been reviewed as part of the pre-operative evaluation. 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 Right elbow pain Hypothyroidism Renal stones GERD (gastroesophageal reflux disease) Hypertension Hyperlipidemia Surgical History Surgical History History of hysteroscopy 08/22/13 09/18/13 History of esophagogastroduodenoscopy (EGD) 12/07/12 History of colonoscopy 07/29/10, 10/31/19 History of bladder surgery Bladder sling 07/14/10 History of knee surgery Right knee arthroscopy 05/22/09 History of cholecystectomy 07/28/07 History of tubal ligation History of tonsillectomy Family History Family History Father Family history of lung cancer Mother Family history of lung cancer Sibling Family history of obesity Depression Family history of migraine headaches Family history of osteoarthritis Patient's sister is in good health Patient's brother is in good health Family history of irritable bowel syndrome Mother Hypertension Family history of osteoarthritis Cerebrovascular accident Family history of lung cancer, Onset Age: 72 Family history of emphysema Family history of irritable bowel syndrome Father Family history of lung cancer, Onset Age: 68 Family history of emphysema Patient's father is Grandparent Family history of coronary artery disease Other Diabetes mellitus Family history of arthritis Family history of cardiovascular disease Family history of malignant neoplasm Social History Social History Smoking status: Never smoker Second hand tobacco smoke exposure: No Alcohol intake: current Drinks per week: 0 Alcohol use details: (1-2x/month) Substance use: never Substance use type: does not use Lack of Transportation: No Lack of Food: Never True Current Housing: I Have Housing Concerned About Future Housing: No Difficulty Paying Gas/Electric Bills: No Difficulty Paying for Meds: No Currently Unemployed: No Education: High School Diploma/GED Difficulty w/ Childcare or Family Care: No Living arrangements: with family Gender identity (if verbalized by the patient): Female Spiritual care concerns: No Agree to blood products: Yes Anes - Evsavita Final PreProcedure Day of Procedure 12/21/24 13:41 Patient weight: overweight Heart: regular rate and rhythm Lungs: clear to auscultation Airway: Mallampati scale class II Neurological: alert and oriented Last oral intake: >/= 8 hours ASA classification: III Emergent: no Anesthetic plan: proceed Anesthesia type and monitoring: general LMA and standard monitoring Results Review: All pre-operative results and documents have been reviewed as part of the pre-operative evaluation. Informed Consent: The patient's anesthetic plan and its attendant risks and benefits were discussed with the patient/family/POA. Questions were solicited and answers provided to the satisfaction of the patient/family/POA.
[2024-12-21] MEDS: SCOPOLAMINE 1 MG PATCH 1 PATCH TRANSDERM (14:06)
[2024-12-21] MEDS: ceFAZolin 2 GM/D5W 50 ML 2 GM/50 ML BAG IVPB (15:19)
--- NOTE | 2024-12-21 15:25 | P.OP_ITS ---
Procedure Note - Detailed Date of Procedure 12/21/24 Pre-op Diagnosis Lt Knee Pain, Left Patellafemoral Arthritis, right knee arthritis Post-op Diagnosis Same Procedure Performed left knee arthroscopy with debridement, synovectomy and lateral release. Right knee intra-articular injection of Euflexxa gel Lot number [id number], expiration 10/28/2025. 1% sodium hyaluronate, 2 mL syringe product code [id number] 100-0 Surgeon Ilia Perez MD Senior Software Development Engineer 1st staff assistant Anesthesia General Indications 64-year-old with bilateral knee pain, left greater than right. MRI left knee shows patellofemoral chondromalacia and lateral riding patella. Failed conservative treatment cortisone injection, physical therapy, home exercises and bracing. Presents for operative treatment. Right knee MRI demonstrates degenerative changes and medial meniscus tear. Indicated for gel injection. Findings Left knee severe synovitis peripatellar, lateral gutter, anterior fat pad, anterior joint. ACL and PCL intact. Medial and lateral meniscus intact. Grade 3 chondromalacia lateral patellofemoral articulation and lateral riding patella. Osteochondral lesion which measured 10 by 5 mm medial femoral condyle central lesion. Description of Procedure Informed consent given by patient. Operative extremity marked in preoperative holding area. Patient received intravenous antibiotics. Patient brought to operating room and underwent general anesthetic by anesthesia team. Positioned supine on operating room table. Left leg placed into a posterior thigh leg rojas. Foot of the table dropped to 90? and right leg padded out of the field. Time-out performed confirming patient, site of surgery and plan. Left knee prepped and draped in usual sterile surgical fashion using ChloraPrep skin solution. Standard arthroscopic portals made by using a 11 blade knife for the anterior lateral portal 1st. Capsule penetrated bluntly. Camera and inflow started. The operative findings noted. Intra-articular visualization used to position the anterior medial portal using 22 gauge spinal needle. A 11 blade knife used for the skin and blunt penetration of the capsule. 4.7 millimeter arthroscopic shaver introduced and debridement of loose synovium, anterior fat pad, medial lateral gutters, loose cartilage from medial femoral condyle performed. Arthroscopic Wand used to perform chondroplasty of the patellofemoral articulation and the medial femoral condyle. Shaver reintroduced and a synovectomy performed of the anterior fat pad and extensive synovium as well as medial and lateral plica. Bleeding points coagulated with Wand. Arthroscopic Wand used to perform lateral release of the lateral retinaculum to the patella. Improvement in patellar tracking and alignment noted with centralized patella. Knee inspected, no loose pieces noted. 1 liter of irrigant infused and suction out. Arthroscopic cannulas removed. Skin closed with 4 nylon interrupted suture. Local anesthetic with 0.25% Marcaine. Sterile dressing applied. Right knee then addressed. Anatomic landmarks marked and knee prepped with chlorhexidine prep. 18 gauge needle placed in the anteromedial knee joint and Euflexxa gel injected intra-articular. Sterile dressing applied. Patient awoken from anesthesia, extubated and taken to recovery room in stable condition. All sponge needle and instrument counts correct at the end of the case. Estimated Blood Loss 2 Tourniquet Time Total Tourniquet Time: 0 Drains No Packing No Pathology None sent Complications None Condition Stable Disposition PACU [facility] Billing Surgery - Charge Forward: Surgery Billing ([id number], [id number])
[2024-12-21] MEDS: BUPIVACAINE/EPINEPHRINE 0.5% 30 ML VIAL 20 ML INFILTRATE (15:36)
[2024-12-21] MEDS: BUPivacaine HCL 0.25% PF 30 ML VIAL 20 ML INFILTRATE (15:38)
[2024-12-21] MEDS: oxyCODONE HCL (*CRX) 5 MG TAB IR PO (17:39)
== END 2024-12-21 18:04 | disposition home or self-care (01) ==
PROVIDERS: PCP Family Medicine; Visit Provider Orthopaedic Surgery
PROC: (CPT 29870; principal; 2024-12-21 14:30)
DX: M17.0 Bilateral primary osteoarthritis of knee (principal); M22.42 Chondromalacia patellae, left knee; M65.962 Unspecified synovitis and tenosynovitis, left lower leg; I12.9 Hypertensive chronic kidney disease with stage 1 through stage 4 chronic kidney disease, or unspecified chronic kidney disease; N18.30 Chronic kidney disease, stage 3 unspecified; E78.5 Hyperlipidemia, unspecified; E03.9 Hypothyroidism, unspecified; K21.9 Gastro-esophageal reflux disease without esophagitis; M85.88 Other specified disorders of bone density and structure, other site; G56.01 Carpal tunnel syndrome, right upper limb; Z79.83 Long term (current) use of bisphosphonates; Z79.899 Other long term (current) drug therapy; Z98.890 Other specified postprocedural states; Z90.49 Acquired absence of other specified parts of digestive tract; Z98.51 Tubal ligation status; Z87.442 Personal history of urinary calculi; Z80.1 Family history of malignant neoplasm of trachea, bronchus and lung; Z82.49 Family history of ischemic heart disease and other diseases of the circulatory system
CPT/HCPCS: 29876; 29873; 20610; A9270; J0690; J1100; J1885; J2003; J2250; J2405; J2704; J3010; J7120

== ENCOUNTER 2025-02-23 06:42 | Outpatient (CLI) | payer OTHER, SELFPAY ==
--- OUTSIDE RECORDS SUMMARY | 2025-02-23 06:45 | XMS_ITS ---
Author Organization Unknown Medications Medication Instructions Effective Dates (start - stop) Status prednisone 10 MG Oral Tablet [id number] 0:00:00Z - Completed {6 (azithromycin 250 MG [...]
--- OUTSIDE RECORDS SUMMARY | 2025-02-23 06:45 | XMS_ITS | Clinical Summary ---
Author Organization [facility] Address [address] [place] [address] Care Team Providers Care Polisher And Sander Name Role Phone Eliane Hou MD Primary Care Provider [phone] Allergies Active Allergy Reactions Criticality Noted Date [...] omeprazole (PriLOSEC) 20 mg capsule daily. Active Surgical History Surgery Date Site/Laterality Comments [place] LAPS ABD PRTM&OMENTUM DX W/WO SPEC BR/WA SPX Laparoscopy (Diagnostic) - (1986). (Added by TW Conv) [place] TONSILLECTOMY PRIMARY/SEC ONDARY <AGE 14 Tonsillectomy - (Added by TW Conv) [place] LIG/TRNSXJ FLP TUBE ABDL/ VAG APPR UNI/BI Tubal Ligation - (Added by TW Conv) [place] CHOLECYSTECTOMY Cholecystectomy - (Added by TW Conv) [place] HYSTEROSCOPY BX ENDOMETRIUM&/POLYPC W/WO D&C Hysteroscopy - [...] on file Legal Sex Female 12:12 AM IMPERSONATOR CHARACTER Gender Identity Not on file Sexual Orientation Not on file Obstetrics History Last Filed Vital Signs Vital Sign Reading Time Taken Comments Blood Pressure 146/78 07/14/2019 10:49 AM CDT Pulse 57 07/14/2019 10:49 AM CDT Temperature 36.7 C (98 F) 07/14/2019 10:49 AM CDT Respiratory Rate 18 [...] this topic Medical Devices Implanted Type Area Supervisor Grounds Device Identifier Shelf Expiration Date Model / Serial / Lot Neurostimulator Bladder Implanted:Unknown , Notinfile (Quantity not on file) Neurostimulator Pelvis Medtronic Neuro [id number] / / Neurostimulator Bladder Lead Implanted:Qty: 1 by Unknown, Notinfile Neurostimulator Pelvis Medtronic Neuro [id number] / / Insurance [facility] [facility] Member Subscriber Plan / Payer (Ef fective 2018-Present) Name:Asia Velasquez Member ID:[id number] Relation to Subscriber:Spouse Name:SAVANNAH VELASQUEZ Subscriber ID:Not on file Date of :1954 Payer ID:[id number] Type:HEALTHLINK HMO/PPO Address: [address] [place] [id number] HEALTHLINK OPEN ACCESS [facility] [id number] Member Subscriber Plan / Payer (Ef fective 2021-Present) Name:Asia Velasquez Member ID:[id number] Relation to Subscriber:Self Name:Asia Velasquez Subscriber ID:[id number] Payer ID:[id number] Type:HEALTHLINK HMO/PPO Address: [address] [place] [phone] Care Teams Polisher And Sander Relationship Specialty Start Date End Date Eliane Hou MD [address] [place] [address] PCP - General Family Medicine 10/26/24
--- OUTSIDE RECORDS SUMMARY | 2025-02-23 06:45 | XMS_ITS | Referral Summary ---
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 OPERATOR Gender Identity Not on file Sexual Orientation [...] on file Medical Devices Implanted Type Area Black Puller Device Identifier Shelf Expiration Date Model / Serial / Lot Neurostimulator Bladder Implanted:Unknown , Notinfile (Quantity not on file) Neurostimulator Pelvis Medtronic Neuro [id number] / / Neurostimulator Bladder Lead Implanted:Qty: 1 by Unknown, Notinfile Neurostimulator Pelvis Medtronic Neuro [id number] / / Insurance [employer] [facility] [employer] [facility] Member Subscriber Plan / Payer (Ef fective 2018-Present) Name:Ron Asia Josie Member ID:[id number] Relation to Subscriber:Spouse Name:SAVANNAH VELASQUEZ Subscriber ID:Not on file Date of :1954 Payer ID:[id number] Type:[employer] HMO/PPO Address: [address] [place] [phone] [employer] OPEN ACCESS [facility] [address] Member Subscriber Plan / Payer (Ef fective 2021-Present) Name:Asia Velasquez Member ID:[id number] Relation to Subscriber:Self Name:Ron Asia A Subscriber ID:[id number] Payer ID:[id number] Type:[employer] HMO/PPO Address: [address] [place] [phone] Care Teams Cd Mixer Relationship Specialty Start Date End Date Eliane Hou MD [address] [place] [address] PCP - General Family Medicine 10/26/24
--- OUTSIDE RECORDS SUMMARY | 2025-02-23 06:45 | XMS_ITS | Clinical Summary ---
Author Organization [facility] Address [address] [place] [address] Care Team Providers Care Port Captain Name Role Phone Unavailable Primary Care Provider Unavailabl e Source Comments [facility],non-owned Affiliates and Associated Physician Practices is amultiple site organization consisting of ambulatory clinics and hospital sitesin [place], [place], [place] and [place]. This disclosure is being madepursuant to the Care Everywhere program and may not contain all information available regarding this patient. Last updated 18.[facility] Social History Tobacco Use Types Packs/Day Years [...] VACCINE ( - 2023-2 5 season) 2024 DEPRESSION SCREENING 11/22/2024 INFLUENZA VACCINE (Season Ended) 2025 Respiratory Syncytial Virus (RSV) Vaccine Pt: or [...] to complete this topic MENINGOCOCCAL (Group B) VACC INE SHARED DECISION-MAKING Aged Out No longer eligibl e based on patient's age to complete this topic MENINGOCOCCAL GROUPS A/C/Y/W VACCINE Aged Out No longer eligible b ased on patient's age to complete this topic PNEUMOCOCCAL VACCINE Aged Out No long er eligible based on patient's age to complete this topic
[2025-02-23 07:58] LABS: Alanine Aminotransferase 27 U/L (6-35); Albumin Level 4.2 g/dL (3.5-5.1); Alkaline Phosphatase 72 U/L (38-126); Anion Gap 8 mmol/L (4-12); Aspartate Amino Transferase 29 U/L (14-36); Bilirubin,Total 0.6 mg/dL (0.2-1.3); Blood Urea Nitrogen 26 mg/dL (7-17); Calcium 8.9 mg/dL (8.4-10.2); Carbon Dioxide 27 mmol/L (22-30); Chloride 107 mmol/L (98-107); Cholesterol 206 mg/dL (0-200); Estimated Glomerular Filt Rate > 60; Glucose 103 mg/dL (65-110); HDL Direct 51 mg/dL; Potassium 3.8 mmol/L (3.4-5.0); Sodium 142 mmol/L (137-145); Triglycerides 106 mg/dL (<150)
[2025-02-23 08:10] LABS: LDL Cholesterol Direct 121 mg/dL
[2025-02-23 09:29] LABS: Vitamin D 25 Hydroxy 56.1 ng/mL
== END 2025-02-23 06:43 | disposition home or self-care (01) ==
LOC: ANHLAB 06:43
PROVIDERS: PCP Family Medicine; Visit Provider Family Medicine
DX: Z00.00 Encounter for general adult medical examination without abnormal findings (principal); E78.5 Hyperlipidemia, unspecified; I10 Essential (primary) hypertension; E55.9 Vitamin D deficiency, unspecified; E03.9 Hypothyroidism, unspecified; E78.2 Mixed hyperlipidemia
CPT/HCPCS: 36415; 80053; 80061; 82306; 84443

== ENCOUNTER 2025-10-26 08:18 | Outpatient (CLI) | payer OTHER, SELFPAY ==
--- NOTE | ~2025-10-26 | MM_ITS ---
EXAMINATION: MM screening desean BI w praful HISTORY: Screening. TECHNIQUE: Craniocaudal and mediolateral oblique 3-D tomosynthesis images were obtained and synthetic 2-D images were generated. CAD analysis was submitted and interpreted. COMPARISON: 2023, 2022, and 2021. BREAST PARENCHYMAL COMPOSITION: Not Dense: There are scattered areas of fibroglandular tissue FINDINGS: No suspicious masses are seen. There are no suspicious calcifications. No unexplained architectural distortion is seen. There are no skin or nipple abnormalities identified. There is no adenopathy seen on the images submitted. IMPRESSION: No mammographic or sonographic evidence to suggest malignancy is seen. The patient may return to screening mammography as per ACR guidelines. BI-RADS 1 - Negative. Reviewed, dictated and finalized at location B. YTICAL SCIENTIST IMPRESSION: No mammographic or sonographic evidence to suggest malignancy is seen. The tim ent may return to screening mammography as per ACR guidelines. BI-RADS 1 - Negative.
== END 2025-10-26 08:19 | disposition home or self-care (01) ==
LOC: ANHFOHIMG 08:20
PROVIDERS: PCP Family Medicine; Visit Provider Nurse Practitioner Women's Health
DX: Z12.31 Encounter for screening mammogram for malignant neoplasm of breast (principal)
CPT/HCPCS: 77063; 77067